=== PATIENT | female | born 1980 | race Caucasian/White ===

== ENCOUNTER → 2019-11-12 07:01 | Outpatient (CLI) | payer BC, SELFPAY ==
[2019-10-27 09:13] VITALS: BMI 33.8
--- NOTE | 2019-11-12 07:02 | BI_ITS ---
MAMMOGRAPHY - BILATERAL SCREENING REASON FOR EXAM: Female, 39 years old. Routine annual screening examination. PERTINENT HISTORY: Non-contributory. TECHNIQUE: Digital bilateral breast janell (3D mammographic acquisition) in the CC and MLO projections. 2-D mediolateral oblique (MLO) and craniocaudad (CC) views of both breasts were obtained. CAD: Full Field Digital Mammography with Computer Added Detection was performed. COMPARISON: None. Baseline examination. FINDINGS: Breast Composition: The breasts are heterogeneously dense, which may obscure small masses. There are no dominant masses or suspicious calcifications. No other significant abnormalities are identified. There has been no significant change since the prior study. BI/SCREEN MAMM (CAD) W/JANELL BILAT IMPRESSION: Stable bilateral screening mammogram. Yearly follow-up mammogram recommended. (A) ASSESSMENT CATEGORY: BIRADS Category 1: Negative. A letter regarding these results will be sent to the patient by the facility within 30 days. Approximately 10% of breast cancers are not detected by mammography. A normal mammogram should not delay biopsy of a clinically suspicious abnormality. [id number] Electronically Signed: Elie Gordillo, at 9:36 EDT , Service support ,
== END ==
PROVIDERS: PCP Internal Medicine; Referring Provider Nurse Practitioner Women's Health; Visit Provider Nurse Practitioner Women's Health
DX: Z12.31 Encounter for screening mammogram for malignant neoplasm of breast (principal)
CPT/HCPCS: 77063; 77067

== ENCOUNTER → 2019-12-12 08:50 | Outpatient (CLI) | payer BC, SELFPAY ==
[2019-12-12 08:19] VITALS: BMI 33.8
[2019-12-12 12:18] LABS: Absolute Lymphocyte Count 2.14 X10^3/uL (0.83-4.51); Absolute Neutrophil Count 2.8 X10^3/uL (2.0-7.7); Basophil# 0.03 X10^3/uL; Basophil% 0.5 % (0-1); Eosinophil# 0.15 X10^3/uL; Eosinophils% 2.7 % (0-5); Hematocrit 41.9 % (37-47); Hemoglobin 13.7 g/dL (12.0-15.0); Lymphocyte # 2.14 X10^3/ul (4.0); Lymphocyte % 38.7 % (19-41); Mean Corp Hgb Conc 32.7 g/dL (32-36); Mean Corpuscular Hgb 29.1 pg (27.0-32.0); Mean Corpuscular Volume 89.1 fL (81-99); Mean Platelet Vol. 10.3 fl (6.2-12.0); Monocyte# 0.38 X10^3/uL; Monocyte% 6.9 % (0-10); NRBC Flagged by Analyzer 0 % (0-5); Neutrophil # 2.82 X10^3/uL (2.7-7.7); Platelet Count 217 K/mm3 (150-450); RBC Distribution Width CV 11.7 % (11.6-14.6); RBC Distribution Width SD 37.5 fl (35.1-43.9); White Blood Count 5.5 K/mm3 (4.4-11.0)
[2019-12-12 12:27] LABS: AST(SGOT) 17 U/L (15-37); Alanine Aminotransfer ALT/SGPT 29 U/L (13-56); Albumin, Serum 3.8 g/dL (3.2-5.0); Alkaline Phosphatase 55 U/L (45-117); Anion Gap 6 (5-15); BUN 12 mg/dL (7-18); BUN/Creat Ratio 13.3 RATIO (10-20); Calcium,Total 9.1 mg/dL (8.5-10.1); Chloride 107 mmol/L (98-107); Cholesterol 194 mg/dL (200); EST Glomerular Filtration Rate 73 mL/min (>60); Est Glom Filt Rate - Afr Amer 89 mL/min (>60); Glucose 96 mg/dL (74-106); High Density Lipoprotein 66 mg/dL; Potassium 4.5 mmol/L (3.5-5.1); Protein, Total 7.8 g/dL (6.4-8.2); Sodium Level 142 mmol/L (136-145); Triglycerides 142 mg/dL; Very Low Density Lipoprotein 28 mg/dL (5-40)
== END ==
PROVIDERS: PCP Internal Medicine; Referring Provider Internal Medicine; Visit Provider Internal Medicine
DX: J45.909 Unspecified asthma, uncomplicated (principal); R03.0 Elevated blood-pressure reading, without diagnosis of hypertension; E66.9 Obesity, unspecified
CPT/HCPCS: 36415; 80053; 80061; 85025

== ENCOUNTER 2025-06-23 05:22 | Emergency (ER) | payer BC, SELFPAY ==
[2025-06-23 05:22] VITALS: BP 198/115; PULSE 108; RESP 18; TEMP 36.4; O2SAT 99; BMI 34.8
--- NOTE | 2025-06-23 05:43 | CT_ITS ---
PROCEDURE: BRAIN/HEAD WITHOUT CONTRAST 06/23/2025 REASON FOR EXAM: HEADACHE TECHNIQUE: Procedure Code: CTBR Modality: CT Procedure: BRAIN/HEAD WITHOUT CONTRAST Coronal and Sagittal reconstruction series were provided. One or more dose reduction techniques were used (e.g., Automated exposure control, adjustment of the mA and/or kV according to patient size, use of iterative reconstruction technique. RADIATION DOSE SUMMARY: CTDI Vol 44.99 mGy DLP :846.73 mGycm COMPARISON: none FINDINGS: The visualized brain parenchyma shows normal appearance. No focal parenchymal abnormalities are demonstrated. Montano-white matter differentiation is maintained. Normal CT appearance of the posterior fossa structures. No intracerebral or extra-axial hemorrhage. No midline shifts or deformity. Normal size and configuration of the cerebral ventricles. No definite calvarial fractures. The osseous structures in the skull base are unremarkable. Scanned paranasal sinuses are unremarkable. CT/Brain/Head without Contrast IMPRESSION: No intracerebral or extra-axial hemorrhage. No acute territorial cerebrovascular abnormalities. If clinical symptoms persis t, further evaluation with MRI may be considered as clinically warranted. Reading [facility]
--- NOTE | 2025-06-23 05:43 | EKG12_ITS ---
Test Reason : HTN Blood Pressure : */* mmHG Vent. Rate : 95 BPM Atrial Rate : 95 BPM P-R Int : 166 ms QRS Dur : 74 ms QT Int : 358 ms P-R-T Axes : 39 17 28 degrees QTcB Int : 449 ms Normal sinus rhythm Normal ECG Confirmed by Akash Cisneros ([id number]), slot editor ORI PARADA ([id number]) on 06/29/2025 8:23:10 AM Referred By: MATY Confirmed By: Akash Cisneros
--- OUTSIDE RECORDS SUMMARY | 2025-06-23 05:48 | XMS RPT_ITS | CCD ---
Author Organization [facility] Inform ion Partnership [facility] Care Team Providers Care Cardiopulmonary Physical Therapist Name Role Phone Beanivisforeign Aixa Ryan Primary Care Provider Calvin Sneed Primary Care Provider RACHELLE Elizabeth Attending Unava ilable CHICORELLI, ALLISON RENEE Referring Unavailab le CHICORELLI, ALLISON RENEE Attending Unavailab le CHICORELLI, ALLISON RENEE Attending Unavailab le CHICORELLI, ALLISON RENEE Attending Unavailab le BEAL, SCOTT Attending Unavailable CHICORELLI, ALLISON RENEE Referring Unavailab KEO Irizarry Attending Unavailable CHICORELLI, ALLISON RENEE Referring Unavailab le CHICORELLI, ALLISON RENEE Referring Unavailab le Allergies Allergy Classification Reported Allergen(s) Allergy Type Date of Onset Reaction(s) Facility eggplant extract (1 source) eggplant extract Drug Allergy 08-07-2005 [facility] Pollen (1 source) Pollen Substance Allergy 08-07-2005 [facility] (8 sources) eggplant extract; Translations: [EGGPLANT] Drug Allergy 08-07-2005 [facility] (8 sources) Pollen; Translations: [POLLEN] Propensity to adverse reactions 08-07-2005 [facility] Medications Current Medications Medication Drug Class(es) Dates Sig (Normalized) Sig (Original) 200 actuat albuterol 0.09 mg/actuat metered dose inhaler (6 sources) beta2-Adrenergic Agonist Start: 05-25-2005 take 2 puff(s) by inhalation every four hours as needed ALBUTEROL 90 MCG/ACTUATION AEROSOL INHALER Indications: Unspecified asthma(493.90) 2 puffs every four (4) hours as needed 1 2 05/25/2005 Active Comment on above: 2 puffs every four ( 4) hours as needed diphenhydrAMINE (5 sources) Histamine-1 Receptor Antagonist diphenhydramine HCl (BENADRYL ALLERGY ORAL) Take by mouth. Active diphenhydramine HCl (BENADRYL ALLERGY ORAL) Take by mouth. 0 Active fexofenadine (5 sources) Histamine-1 Receptor Antagonist fexofenadine HCl (HONG ORAL) Take by mouth. Active fexofenadine HCl (HONG ORAL) Take by mouth. 0 Active ibuprofen 600 mg oral tablet (5 sources) Nonsteroidal Anti-inflammatory Drug Start: 03-17-2011 take 1 tablet by mouth every six hours as needed ibuprofen 600 mg ORAL tablet Take 1 tablet by mouth every 6 hours as needed for Pain. 20 tablet 0 03/17/2011 Active mv-mn/iron fum/FA/omega3,6, 9#3 (WOMEN'S MULTI ORAL) (5 sources) mv-mn/iron fum/FA/omega3,6, 9#3 (WOMEN'S MULTI ORAL) Take by mouth. Active mv-mn/iron fum/F A/omega3,6,9#3 (WOMEN'S MULTI ORAL) Take by mouth. 0 Active sertraline 25 mg oral tablet (5 sources) Serotonin Reuptake Inhibitor Start: 09-20-2011 take 1 tablet by mouth once daily sertraline (ZOLOFT) 25 mg ORAL tablet Indications: Depression Take 1 tablet by mouth once daily. 30 tablet 5 09/20/2011 Active Completed/Discontinued Medications Medication Drug Class(es) Dates Sig (Normalized) Sig (Original) metFORMIN hydrochloride 500 mg oral tablet (1 source) Biguanide Start: 09-08-2010 End: 02-02-2011 take 1 tablet by mouth three times daily metFORMIN (METFORMIN) 500 mg ORAL tablet Take 1 tablet by mouth three times daily. 90 tablet 3 09/08/2010 02/02/2011 Discontinued Comment on above: Take 1 tablet by constantin three times daily. Problems Active Problems Problem Classification Problem Date Documented Date Episodic/Chronic Esophageal disorders (6 sources) Gastroesophageal reflux disease; Translations: [Gastro-esophageal reflux disease without esophagitis] 05-24-2005 Chronic Mood disorders (6 sources) Depressive disorder; Translations: [Major depressive disorder, single episode, unspecified] Onset: 09-20-2011 09-20-2011 Chronic Osteoarthritis (2 sources) Primary osteoarthritis, left shoulder; Translations: [Arthrosis of left acromioclavicular joint] Onset: 03-30-2025 Chronic Other connective tissue disease (3 sources) Full thickness rotator cuff tear; Translations: [Complete rotator cuff tear or rupture of left shoulder, not specified as traumatic] 02-25-2025 Episodic Other connective tissue disease (3 sources) Bursitis of left shoulder; Translations: [Bursitis of left shoulder] 02-25-2025 Episodic Other connective tissue disease (3 sources) Tendonitis of left shoulder; Translations: [Other enthesopathies, not elsewhere classified] 02-25-2025 Episodic Other connective tissue disease (2 sources) Bursitis of left shoulder; Translations: [Bursitis of left shoulder] Onset: 03-20-2025 Episodic Other connective tissue disease (1 source) Other shoulder lesions, left shoulder; Translations: [Tendinitis of left shoulder] Onset: 04-17-2025 Episodic Other connective tissue disease (2 sources) Complete rotator cuff tear or rupture of left shoulder, not specified as traumatic; Translations: [Complete tear of left rotator cuff, unspecified whether traumatic] Onset: 02-25-2025 Episodic Other connective tissue disease (2 sources) Other enthesopathies, not elsewhere classified; Translations: [Tendinitis of left shoulder] Onset: 02-25-2025 Episodic Other nervous system disorders (3 sources) Other chronic pain; Translations: [Chronic left shoulder pain] Onset: 03-20-2025 Chronic Other non-traumatic joint disorders (6 sources) Pain in left shoulder; Translations: [Pain in joint, shoulder region] Onset: 02-25-2025 02-17-2025 Episodic Other non-traumatic joint disorders (3 sources) Disorder of shoulder; Translations: [Other specified joint disorders, unspecified shoulder] 02-25-2025 Episodic Other non-traumatic joint disorders (1 source) Chronic pain of left upper limb; Translations: [Pain in left shoulder] 02-25-2025 Episodic Other non-traumatic joint disorders (2 sources) Other specified joint disorders, unspecified shoulder; Translations: [Shoulder impingement] Onset: 02-25-2025 Episodic Other upper respiratory disease (6 sources) Allergic rhinitis; Translations: [Allergic rhinitis, unspecified] Onset: 05-25-2005 05-25-2005 Chronic Residual codes; unclassified (2 sources) Pain; Translations: [Pain, unspecified] 10-26-2023 Episodic Unclassified (1 source) Left shoulder pain, unspecified chronicity 02-17-2025 Unclassified (2 sources) Chronic pain of left upper limb 02-25-2025 Past or Other Problems Problem Classification Problem Date Documented Da te Episodic/Chronic Diabetes or abnormal glucose tolerance complicating ; childbirth; or the puerperium (6 sources) Gestational diabetes mellitus; Translations: [Gestational diabetes mellitus in , unspecified control] Onset: 02-28-2011 02-28-2011 Episodic Other non-traumatic joint disorders (6 sources) Arthralgia of the pelvic region and thigh; Translations: [Pain in unspecified hip] Onset: 08-16-2006 08-16-2006 Episodic Other and delivery including normal (6 sources) ; Translations: [Encounter for supervision of normal , unspecified, unspecified trimester] Onset: 09-08-2010 09-08-2010 Episodic Spondylosis; intervertebral disc disorders; other back problems (6 sources) Low back pain; Translations: [Low back pain] Onset: 11-13-2006 11-13-2006 Episodic Results Test Name Value Interpretation Reference Range Facility [facility] 04-17-2025 CNOV Office Visit (ORMDNA ) ANTIONE DELUCA ([id number]) 1980 F [facility] Date Time Provider Department 04/17/25 12:30 PM ALLISON GARCIA During your visit today, we recorded the following information about you: Allison Garcia DO 04/23/2025 10:18 AM Signed Follow Up Visit Chief Complaint The patient is a 44-year-old female presenting for evaluation of persistent right shoulder pain following an AC joint corticosteroid injection. Patient presents with: Left Shoulder - Established Patient, Follow Up, Pain History of Present Illness PAIN EVALUATION 04/17/2025 0625 04/17/2025 1233 Pain Level: 3 4 Pain Location: Shoulder-Left Shoulder-Left Description: Aching;Sharp;Sore Sharp Duration Amount of Time: 2 -- ongoing Duration Units: Minutes -- Frequency: Intermittent Intermittent Intervention/Comfort measure: Relaxation;Cold Medication;Reposition;R elaxation HPI: Antione Deluca is a 44 year old female for a follow up visit left shoulder pain. Pain history is noted as above. She was seen by where she received a left AC joint CSI. She did have 75% pain relief but continues to have intermittent pain. Currently she is taking Tylenol for pain control. Is there any overall improvement in your condition? Yes Any new injury, since being seen last: No Екатерина Deluca is a 44-year-old female presenting for follow-up of shoulder pain. Shoulder Pain: - Received an AC joint injection on 03/30, with improvement noted after one week. - Pain localized to the clavicle and AC joint area. - Able to perform daily activities such as putting on a bra and placing dishes on the top shelf. - Pain is intermittent and not consistently triggered by specific activities. - Reports fewer headaches and increased relaxation in the trapezius muscle. - Engaging in physical therapy exercises to maintain muscle looseness. REVIEW OF SYMPTOMS: Patient did not have, and does not currently have, any weight loss, malaise, fever, chills, headache, chest pain, chest pressure, palpitations, cough, shortness of breath, orthopnea, paroxsymal nocturnal dyspnea, nausea, vomiting, diarrhea, constipation, melena, hematochezia, urinary difficulties, prolonged bleeding, easily bruising, heat or cold intolerance, new onset joint pain or swelling, new onset extremity weakness or numbness, new onset auditory or visual disturbances, lightheadedness, dizziness, partial loss of consciousness or full loss of consciousness. Musculoskeletal: (+) shoulder pain Neurological: (+) headaches Current Outpatient Medications Medication Sig diphenhydramine HCl (BENADRYL ALLERGY ORAL) Take by mouth. fexofenadine HCl (HONG ORAL) Take by mouth. mv-mn/iron fum/FA/omega3,6,9#3 (WOMEN'S MULTI ORAL) Take by mouth. No current facility-administered medications for this visit. Physical Exam Vitals: LMP 06/11/2010 Psych: Pleasant, good affect and mood General Appearance: Well appearing, alert, in no acute distress, well-hydrated, well nourished.. Skin: Skin color, texture, turgor normal, no suspicious rashes or lesions. Peripheral Pulses: Normal. Neurologic: Gait normal. Reflexes normal and symmetric. Sensation grossly intact.. Lymph Nodes: No cervical lymphadenopathy, No supraclavicular lymphadenopathy, No axillary lymphadenopathy., and No inguinal lymphadenopathy.. Respiratory: No recent pulmonary infection, hemoptysis, chronic cough, or shortness of breath at rest Rheumatologic: Joint deformities: left shoulder pain Right Shoulder Exam Right shoulder exam is normal. Tenderness The patient is experiencing no tenderness. Range of Motion Active abduction: normal Passive abduction: normal Extension: normal External rotation: normal Forward flexion: normal Internal rotation 0 degrees: normal Internal rotation 90 degrees: normal Muscle Strength Abduction: 5/5 Internal rotation: 5/5 External rotation: 5/5 Supraspinatus: 5/5 Subscapularis: 5/5 Biceps: 5/5 Tests Apprehension: negative Ashby test: negative Cross arm: negative Impingement: negative Other Erythema: absent Sensation: normal Pulse: present Comments: B/l med, uln, rad, ax nerves intact Left Shoulder Exam Tenderness The patient is experiencing tenderness in the clavicle. Range of Motion Active abduction: abnormal Passive abduction: normal Extension: normal External rotation: abnormal Forward flexion: normal Internal rotation 0 degrees: normal Internal rotation 90 degrees: normal Muscle Strength Abduction: 5/5 Internal rotation: 5/5 External rotation: 5/5 Supraspinatus: 5/5 Subscapularis: 5/5 Biceps: 5/5 Tests Apprehension: negative Ashby test: negative Cross arm: negative Impingement: negative Other Erythema: absent Sensation: normal Pulse: present Assessment and Plan Ra (more content not included)... Normal [facility] CNOVon 03-30-2025 CNOV Office Visit (ORFWHP ) ANTIONE DELUCA ([id number]) 1980 F T Date Time Provider Department 03/30/25 10:30 AM RACHELLE ALVAREZ ORFWHP During your visit today, we recorded the following information about you: Rachelle Alvarez DO 03/30/2025 11:12 AM Signed CHIEF COMPLAINT: Patient presents with: Left Shoulder - New, Pain: Injection possibly PAIN EVALUATION 03/29/2025 0915 Pain Level: 6 Pain Location: Shoulder-Left Description: Aching;Sharp;Shooting;S tabbing;Tenderness;Thro bbing Duration Amount of Time: 6 Duration Units: Months Frequency: Continuous Intervention/Comfort measure: Medication;Relaxation;C old SUBJECTIVE: Antione Deluca is a 44 year old female here for consideration of USG L AC joint CSI, referral from Dr. Allison Garcia. Last Hgba1c: Hemoglobin A1C (%) Date Value 03/31/2010 5.6 Notes reviewed: Orthopedic surgery note(s) reviewed - dated 03/25/2025 Past medical, surgical, social and family history were reviewed. Allergies and current medications reviewed. REVIEW OF SYSTEMS: GENERAL: no recent illness, unexplained weight loss or weight gain NEUROLOGIC: no numbness, tingling, or weakness except as mentioned in HPI, no known neuro problems or deficits SKIN: No rash or new skin changes and no chronic skin problems MSK: as mentioned in HPI PHYSICAL EXAMINATION: GENERAL APPEARANCE: Well appearing, in no acute distress, alert and oriented x3. L shoulder - cool to the touch without significant effusion. Skin is intact. Patient remains distally neurovascularly intact at baseline. IMAGING: No imaging was performed today. Last MRI Shoulder - Impression Only MRI SHOULDER WO IVCON LEFT Exam End: 03/21/2025 11:34 AM (Final result) Impression: IMPRESSION: NONDISPLACED STRESS FRACTURE OF DISTAL CLAVICLE. 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 TENDINOSIS OF SUPRASPINATUS TENDON. NO ROTATOR CUFF TEAR. ... 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 Injection performed as detailed in the procedure note below. Medium Joint Arthro/Inj: L AC 03/30/2025 11:11 AM The procedure site was prepped in the usual sterile fashion. Details:Musculoskeletal ultrasound was utilized to successfully localize placement of the injection needle at the appropriate site. Ultrasound images demonstrating local vasculature and demonstrating injection of solution were saved. Medications: 6 mg betamethasone acetate-betamethasone sodium phosphate 6 mg/mL Anesthetics: 1 mL lidocaine (PF) 10 mg/mL (1 %) Outcome: tolerated well, no immediate complications Post-injection instructions were reviewed with the patient and the patient voiced understanding of these instructions. Informed Consent Consent Obtained: Verbal [place] Protocol A moment to CARE was completed. SIGN IN Personnel directly involved with the procedure wore the appropriate PPE. Patient/Surrogate Stated/Verified: Patient name, Date of , Relevant allergies and Intended procedure TIME OUT Relevant labs, photos, and/or imaging studies have been reviewed. Intended patient and procedure match source documents. Correct side/site marked and visible. Medications required for procedure verified. SIGN OUT All instruments, equipment, possible retained foreign bodies accounted for. The post-procedure POC has been communicated to the patient or surrogate. Follow-up: as per consulting physician Written instructions (see patient instructions) and verbal health teaching given to patient, patient verbalizes understanding and agrees with treatment plan. Electronically Signed: Rachelle Alvarez DO Sports Medicine Physician Medical Decision Making Rachelle Alvarez DO 03/30/2025 10:42 AM Signed Post injection Instructions: You received a steroid injection today. Please keep any physical therapy appointments and schedule a follow-up appointment as recommended. Benefits: Injections help with PAIN and allow you to better participate in daily activities and exercise/therapy. Injections do NOT cause healing of arthritis or injuries. As pain is better controlled, this will reduce the need to use anti-inflammatories by mouth and/or if you are not able to take an anti-inflammatory due to other reasons (you have been advised to avoid or they are contra-indicated). Activity recommendations: For the first 24 hours after the injection, keep the area clean and dry. It is okay to shower but no soaking in a tub or swimming. Schedule the injection when you have 1-2 days to rest afterwards. Ideally, no strenuous or vigorous activi (more content not included)... [facility] ANTIONE DELUCA ([id number]) 1980 F [facility] Date Time Provider Department 03/25/25 9:15 AM ALLISON GARCIA During your visit today, we recorded the following information about you: Allison Garcia DO 04/01/2025 5:56 PM Signed Follow Up Visit Chief Complaint The patient is a 44-year-old female presenting for evaluation of persistent right shoulder pain and review of MRI findings. Patient presents with: Left Shoulder - Established Patient, Follow Up, Results - Mri, Pain History of Present Illness PAIN EVALUATION 03/24/2025 1443 Pain Level: 8 Pain Location: Shoulder-Left Description: Aching;Sharp;Shooting;S ore;Tenderness;Tightnes s Duration Amount of Time: 6 Duration Units: Months Frequency: Continuous Intervention/Comfort measure: Medication;Cold Comments: Constant HPI: Antione Deluca is a 44 year old female for a follow up visit for left shoulder pain. She is here today to discuss MRI results. She is currently in PT and reports increased pain since starting PT. Pain history is noted as above. Is there any overall improvement in your condition? No Any new injury, since being seen last: No Right Shoulder Pain: - Pain localized to the anterior shoulder and trapezius area. - Aggravated by physical therapy (PT); Екатерина reports breaking down in tears during a session. - Recent MRI reviewed by the clinician. - Undergoing PT with Keo; first session was last Sunday, followed by dry needling on Sunday. - Reports no improvement with dry needling. - Has been limiting overhead activities since October without significant relief. Last MRI Shoulder - Impression Only MRI SHOULDER WO IVCON LEFT Exam End: 03/21/2025 11:34 AM (Final result) Impression: IMPRESSION: NONDISPLACED STRESS FRACTURE OF DISTAL CLAVICLE. 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 TENDINOSIS OF SUPRASPINATUS TENDON. NO ROTATOR CUFF TEAR. ... Impression IMPRESSION: NONDISPLACED STRESS FRACTURE OF DISTAL CLAVICLE. 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 TENDINOSIS OF SUPRASPINATUS TENDON. NO ROTATOR CUFF TEAR. 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 BICEPS TENDINOSIS. REVIEW OF SYMPTOMS: Patient did not have, and does not currently have, any weight loss, malaise, fever, chills, headache, chest pain, chest pressure, palpitations, cough, shortness of breath, orthopnea, paroxsymal nocturnal dyspnea, nausea, vomiting, diarrhea, constipation, melena, hematochezia, urinary difficulties, prolonged bleeding, easily bruising, heat or cold intolerance, new onset joint pain or swelling, new onset extremity weakness or numbness, new onset auditory or visual disturbances, lightheadedness, dizziness, partial loss of consciousness or full loss of consciousness. Musculoskeletal: (+) shoulder pain, (+) neck pain Current Outpatient Medications Medication Sig diphenhydramine HCl (BENADRYL ALLERGY ORAL) Take by mouth. fexofenadine HCl (HONG ORAL) Take by mouth. mv-mn/iron fum/FA/omega3,6,9#3 (WOMEN'S MULTI ORAL) Take by mouth. No current facility-administered medications for this visit. Physical Exam Vitals: [facility] 06/11/2010 Psych: Pleasant, good affect and mood General Appearance: Well appearing, alert, in no acute distress, well-hydrated, well nourished.. Skin: Skin color, texture, turgor normal, no suspicious rashes or lesions. Peripheral Pulses: Normal. Neurologic: Gait normal. Reflexes normal and symmetric. Sensation grossly intact.. Lymph Nodes: No cervical lymphadenopathy, No supraclavicular lymphadenopathy, No axillary lymphadenopathy., and No inguinal lymphadenopathy.. Respiratory: No recent pulmonary infection, hemoptysis, chronic cough, or shortness of breath at rest Rheumatologic: Joint deformities: left shoulder pain Right Shoulder Exam Right shoulder exam is normal. Tenderness The patient is experiencing no tenderness. Range of Motion Active abduction: normal Passive abduction: normal Extension: normal External rotation: normal Forward flexion: normal Internal rotation 0 degrees: normal Internal rotation 90 degrees: normal Muscle Strength Abduction: 5/5 Internal rotation: 5/5 External rotation: 5/5 Supraspinatus: 5/5 Subscapularis: 5/5 Biceps: 5/5 Tests Apprehension: negative Ashby test: negative Cross arm: negative Impingement: negative Other Erythema: absent Sensation: normal Pulse: present Comments: B/l med, uln, rad, ax nerves intact Left Shoulder Exam Tenderness The patient is experiencing tenderness in the clavicle. Range of Motion Active abduction: abnormal Passive abduction: normal Extension: normal External rotation: abnormal Forward flex (more content not included)... Normal [facility] CNTHERAPYon 03-23-2025 CNTHERAPY OT/PT/Speech Visit (PTMDRG) ANTIONE DELUCA ([id number]) 1980 F [facility] Date Time Provider Department 03/23/25 10:15 AM KEO BEAL PTMDRG Date Time Provider Department [place] 03/23/2025 10:15 AM [id number], SCOTT PTMDRG [facility] Reason for Visit: Physical Therapy [503] PT Discharge [752] Primary Visit Diagnosis:Chronic left shoulder pain [M25.512, G89.29] Allergies As of Date: 03/23/2025 Noted Allergy Reaction EGGPLANT 08/07/2005 POLLEN 08/07/2005 Comments: plus Hay Date Reviewed: 02/25/2025 Reviewed by: Jaz Vincent MA - Fully Assessed Prescriptions as of 04/23/2025 - diphenhydramine HCl (BENADRYL ALLERGY ORAL) Take by mouth. - fexofenadine HCl (HONG ORAL) Take by mouth. - mv-mn/iron fum/FA/omega3,6,9#3 (WOMEN'S MULTI ORAL) Take by mouth. Sound Designer: Therapy (PT/OT/Speech/Resp) ID: [id number] 03/23/2025 11:28 AM Author: KEO BEAL Signed by EKO BEAL PT, DPT on 03/23/2025 at 11:28 AM Document text: Program_ID:[id number] Access Code: [email or web address] URL: [email or web address] Date: 03-23-2025 Prepared By: Keo Beal Program Notes Exercises - Standing Upper Trapezius Mobilization with Small Ball - 2 x daily - x weekly - sets - reps - Thoracic Extension Mobilization on Foam Roll - 2 x daily - x weekly - 2 sets - 10 reps - Seated Gentle Upper Trapezius Stretch - 2 x daily - x weekly - 3 sets - reps - Gentle Levator Scapulae Stretch - 2 x daily - x weekly - 3 sets - reps - Supine Shoulder Flexion Extension Full Range AROM - 2 x daily - x weekly - 2 sets - 15 reps - Sidelying Shoulder Abduction Palm Forward - 2 x daily - x weekly - 2 sets - [address] [facility] THERAPY NTon 03-23-2025 THERAPY NT HNO ID: [id number] Author: KEO BEAL, PT, DPT Service: ? Author Type: Physical Therapist Type: Therapy (PT/OT/Speech/Resp) Filed: 03/23/2025 11:28 Note Text: Program_ID:[id number] Access Code: [email or web address] URL: [email or web address] Date: 03-23-2025 Prepared By: Keo Beal Program Notes Exercises - Standing Upper Trapezius Mobilization with Small Ball - 2 x daily - x weekly - sets - reps - Thoracic Extension Mobilization on Foam Roll - 2 x daily - x weekly - 2 sets - 10 reps - Seated Gentle Upper Trapezius Stretch - 2 x daily - x weekly - 3 sets - reps - Gentle Levator Scapulae Stretch - 2 x daily - x weekly - 3 sets - reps - Supine Shoulder Flexion Extension Full Range AROM - 2 x daily - x weekly - 2 sets - 15 reps - Sidelying Shoulder Abduction Palm Forward - 2 x daily - x weekly - 2 sets - 15 reps [facility] MRI SHOULDER WO IVCON LTon 0 03-21-2025 MRI SHOULDER WO IVCON LT * * *Final Report* * * DATE OF EXAM: Mar 21 2025 11:34AM [facility] 0239 - MRI SHOULDER WO IVCON LT / PROCEDURE REASON: multiple diagnoses * * * * Physician Interpretation * * * * MRI SHOULDER WO IVCON LT HISTORY: Chronic left shoulder pain Chronic left shoulder pain Complete tear of left rotator cuff, unspecified whether traumatic Shoulder impingement COMPARISON: None. TECHNIQUE: Multiplanar PD, T1 and T2 weighted images. RESULT: Rotator cuff: Supraspinatus: Tendinosis without tear. Infraspinatus: Within normal limits. Teres minor: Within normal limits. Subscapularis: Within normal limits. Muscles: Rotator cuff muscle bulk and signal are within normal limits. Long Head Biceps Tendon: Tendinosis of intracapsular portion. Labrum: Tear of the superior labrum and biceps anchor. Glenohumeral joint: No chondral defects identified. AC joint: Degenerative hypertrophic AC joint arthrosis with effacement of the underlying supraspinatus myotendinous junction. Bones/marrow: There is transverse linear hypointensity in the distal clavicle 0.6 cm medial to the articular surface, with diffuse marrow edema. Findings suggesting nondisplaced stress fracture. Joint fluid: No joint effusion or synovitis. IMPRESSION: NONDISPLACED STRESS FRACTURE OF DISTAL CLAVICLE. 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 TENDINOSIS OF SUPRASPINATUS TENDON. NO ROTATOR CUFF TEAR. 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 BICEPS TENDINOSIS. Electric Stove Installer: PSCB Transcribe Date/Time: Mar 23 2025 8:46P Dictated by : RACHEL CABRAL MD This examination was interpreted and the report reviewed and electronically signed by: RACHEL CABRAL MD on Mar 23 2025 9:01PM EST [id number] [facility] CNTHERAPYon 03-20-2025 CNTHERAPY OT/PT/Speech Visit (PTMDRG) ANTIONE DELUCA ([id number]) 1980 F CHT Date Time Provider Department 03/20/25 12:15 PM KEO BEAL PTMDRG Date Time Provider Department [place] 03/20/2025 12:15 PM [id number], SCOTT PTMDRG [facility] Reason for Visit: PT Marek [[id number]] Visit Diagnoses:Chronic left shoulder pain [M25.512, G89.29] Complete tear of left rotator cuff, unspecified whether traumatic [M75.122] Shoulder impingement [M25.819] Bursitis of left shoulder [M75.52] Tendinitis of left shoulder [M77.8] Allergies As of Date: 03/20/2025 Noted Allergy Reaction EGGPLANT 08/07/2005 POLLEN 08/07/2005 Comments: plus Hay Date Reviewed: 02/25/2025 Reviewed by: Jaz Vincent MA - Fully Assessed Prescriptions as of 03/20/2025 - diphenhydramine HCl (BENADRYL ALLERGY ORAL) Take by mouth. - fexofenadine HCl (HONG ORAL) Take by mouth. - mv-mn/iron fum/FA/omega3,6,9#3 (WOMEN'S MULTI ORAL) Take by mouth. - sertraline (ZOLOFT) 25 mg ORAL tablet Take 1 tablet by mouth once daily. - ibuprofen 600 mg ORAL tablet Take 1 tablet by mouth every 6 hours as needed for Pain. - ALBUTEROL 90 MCG/ACTUATION AEROSOL INHALER 2 puffs every four (4) hours as needed Sound Designer: Therapy (PT/OT/Speech/Resp) ID: [id number] 03/20/2025 1:04 PM Author: KEO BEAL Signed by KEO BEAL PT, DPT on 03/20/2025 at 1:04 PM Document text: Program_ID:[id number] Access Code: [email or web address] URL: [email or web address]/ Date: 03-20-2025 Prepared By: Keo Beal Program Notes Exercises - Standing Upper Trapezius Mobilization with Small Ball - 2 x daily - x weekly - sets - reps - Theracane Over Shoulder - 2 x daily - x weekly - 3 sets - reps - Seated Thoracic Lumbar Extension - 2 x daily - x weekly - 2 sets - 10 reps [facility] THERAPY NTon 03-20-2025 THERAPY NT HNO ID: [id number] Author: KEO BEAL, PT, DPT Service: ? Author Type: Physical Therapist Type: Therapy (PT/OT/Speech/Resp) Filed: 03/20/2025 13:04 Note Text: Program_ID:[id number] Access Code: [email or web address] URL: [email or web address]/ Date: 03-20-2025 Prepared By: Keo Beal Program Notes Exercises - Standing Upper Trapezius Mobilization with Small Ball - 2 x daily - x weekly - sets - reps - Theracane Over Shoulder - 2 x daily - x weekly - 3 sets - reps - Seated Thoracic Lumbar Extension - 2 x daily - x weekly - 2 sets - 10 reps [facility] CNOVon 02-25-2025 CNOV Office Visit (ORMDNA ) ANTIONE DELUCA ([id number]) 1980 F CHT Date Time Provider Department 02/25/25 11:00 AM ALLISON GARCIA JL During your visit today, we recorded the following information about you: Allison Garcia 02/25/2025 12:46 PM Signed Reason for Visit/Chief Complaint The patient is a 44-year-old female presenting for a second-opinion evaluation of left shoulder pain with associated trapezius tightness. Accompanied by her mother. Patient presents with: Left Shoulder - New, Pain History of Present Illness: PAIN EVALUATION 02/25/2025 1112 Pain Level: 7 Pain Location: Shoulder-Left Description: Aching;Stabbing Duration Amount of Time: 6 Duration Units: Months Frequency: Continuous Intervention/Comfort measure: Exercise;Relaxation;Rep osition HPI: Patient presents with left shoulder pain. She denies any known injury states she has had pain about 6 months. She states that she has completed PT which helped with her numbness in her fingers but still having pain. She also tried meloxicam but had to stop due to side effects.Left Shoulder Pain: - Pain localized inside the shoulder, occasionally radiating into the neck and throat. - Екатерина is able to induce pain by applying pressure to the area. - Pain exacerbated by certain movements, particularly when pushing away with arms. - No specific inciting event or trauma recalled. - Previous physical therapy resolved initial numbness in Екатерина?s hands. - Cortisone injection provided minimal relief. 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 Review of Systems: Patient did not have, and does not currently have, any weight loss, malaise, fever, chills, headache, chest pain, chest pressure, palpitations, cough, shortness of breath, orthopnea, paroxsymal nocturnal dyspnea, nausea, vomiting, diarrhea, constipation, melena, hematochezia, urinary difficulties, prolonged bleeding, easily bruising, heat or cold intolerance, new onset joint pain or swelling, new onset extremity weakness or numbness, new onset auditory or visual disturbances, lightheadedness, dizziness, partial loss of consciousness or full loss of consciousness. Current Outpatient Medications on File Prior to Visit Medication Sig diphenhydramine HCl (BENADRYL ALLERGY ORAL) Take by mouth. fexofenadine HCl (HONG ORAL) Take by mouth. mv-mn/iron fum/FA/omega3,6,9#3 (WOMEN'S MULTI ORAL) Take by mouth. sertraline (ZOLOFT) 25 mg ORAL tablet Take 1 tablet by mouth once daily. (Patient not taking: Reported on 02/25/2025) ibuprofen 600 mg ORAL tablet Take 1 tablet by mouth every 6 hours as needed for Pain. (Patient not taking: Reported on 02/25/2025) ALBUTEROL 90 MCG/ACTUATION AEROSOL INHALER 2 puffs every four (4) hours as needed (Patient not taking: Reported on 02/25/2025) No current facility-administered medications on file prior to visit. ALLERGIES Allergen Reactions Eggplant Pollen plus Hay Physical Exam: Vitals: [facility] 06/11/2010 Psych: Pleasant, good affect and mood General Appearance: Well appearing, alert, in no acute distress, well-hydrated, well nourished.. Skin: Skin color, texture, turgor normal, no suspicious rashes or lesions. Peripheral Pulses: Normal. Neurologic: Gait normal. Reflexes normal and symmetric. Sensation grossly intact.. Lymph Nodes: No cervical lymphadenopathy, No supraclavicular lymphadenopathy, No axillary lymphadenopathy., and No inguinal lymphadenopathy.. Respiratory: No recent pulmonary infection, hemoptysis, chronic cough, or shortness of breath at rest Rheumatologic: Joint deformities: left shoulder pain Right Shoulder Exam Right shoulder exam is normal. Tenderness The patient is experiencing no tenderness. Range of Motion Active abduction: normal Passive abduction: normal Extension: normal External rotation: normal Forward flexion: normal Internal rotation 0 degrees: normal Internal rotation 90 degrees: normal Muscle Strength Abduction: 5/5 Internal rotation: 5/5 External rotation: 5/5 Supraspinatus: 5/5 Subscapularis: 5/5 Biceps: 5/5 Tests Apprehension: negative Ashby test: negative Cross arm: negative Impingement: negative Other Erythema: absent Sensation: normal Pulse: present Comments: B/l med, uln, rad, ax nerves intact Left Shoulder Exam Tenderness The patient is experiencing tenderness in the biceps tendon (trapezius). Range of Motion Active abduction: normal Passive abduction: normal Extension: normal External rotation: abnormal Forward flexion: normal Internal rotation 0 degrees: normal Internal rotation 90 degrees: normal Muscle Strength Abduction: 5/5 Internal rotation: 5/5 External rotation: 4/5 Supraspinatus: 4/5 Subscapularis: 5/5 B (more content not included)... Normal [facility] XR SHLDR >/=3V AP/BOAZ AP/OTH R LTon 02-25-2025 XR SHLDR >/=3V AP/BOAZ AP/OTHR LT * * *Final Report* * * DATE OF EXAM: Feb 25 2025 11:11AM ZEKE [id number] - XR SHLDR >/=3V AP/BOAZ AP/OTHR LT / PROCEDURE REASON: M25.512-Left shoulder pain, unspecified chronicity * * * * Physician Interpretation * * * * EXAMINATION / TECHNIQUE: XR SHLDR >/=3V AP/BOAZ AP/OTHR LT HISTORY: Left shoulder pain Left shoulder pain, unspecified chronicity COMPARISON: Left shoulder MRI dated 12/11/2024. RESULT: No acute fracture or osseous malalignment is identified. The joint spaces are preserved. IMPRESSION: No acute bony abnormality. Electric Stove Installer: AMAURY Transcribe Date/Time: Mar 02 2025 7:20P Dictated by : BARTOLOME MATHEWS MD This examination was interpreted and the report reviewed and electronically signed by: BARTOLOME MATHEWS MD on Mar 02 2025 7:20PM EST [id number] [facility] No Panel Informationon 10-25 Radiology Study observation (narrative) [facility] XR Hand - right PA and Later al and Obliqueon 10-26-2023 IMPRESSION: No acute osseous abnormality Electric Stove Installer: [facility] Transcribe Date/Time: Oct 26 2023 9:20A Dictated by : VIRGIL ALLISON MD This examination was interpreted and the report reviewed and electronically signed by: VIRGIL ALLISON MD on Oct 26 2023 9:22AM EST DIVISION OF RADIOLOGY * * *Final Report* * * DATE OF EXAM: Oct 26 2023 8:53AM WOX [id number] - XR HAND 3V PA/LAT/OBL RT / PROCEDURE REASON: Pain * * * * Physician Interpretation * * * * EXAMINATION: XR HAND 3V PA/LAT/OBL RT CLINICAL HISTORY: Right hand pain Technique: XR HAND 3V PA/LAT/OBL RT -- RIGHT with 3 views on 3 images Comparison: None RESULT: No acute fracture or dislocation. Joint spaces are maintained. No periarticular erosions. DIVISION OF RADIOLOGY Provider, [facility] - 10/26/2023 * * *Final Report* * * DATE OF EXAM: Oct 26 2023 8:53AM WOX 5346 - XR HAND 3V PA/LAT/OBL RT / PROCEDURE REASON: Pain * * * * Physician Interpretation * * * * EXAMINATION: XR HAND 3V PA/LAT/OBL RT CLINICAL HISTORY: Right hand pain Technique: XR HAND 3V PA/LAT/OBL RT -- RIGHT with 3 views on 3 images Comparison: None RESULT: No acute fracture or dislocation. Joint spaces are maintained. No periarticular erosions. IMPRESSION IMPRESSION: No acute osseous abnormality Electric Stove Installer: [facility] Transcribe Date/Time: Oct 26 2023 9:20A Dictated by : VIRGIL ALLISON MD This examination was interpreted and the report reviewed and electronically signed by: VIRGIL ALLISON MD on Oct 26 2023 9:22AM [facility] XR Wrist - right 4 Viewson 0 10-26-2023 IMPRESSION: No acute radiographic abnormalities seen in the right wrist. Electric Stove Installer: [facility] Transcribe Date/Time: Oct 26 2023 8:55A Dictated by : SHERRY ROMERO MD This examination was interpreted and the report reviewed and electronically signed by: SHERRY ROMERO MD on Oct 26 2023 8:59AM [facility] DIVISION OF RADIOLOGY * * *Final Report* * * DATE OF EXAM: Oct 26 2023 8:53AM WOX 5273 - XR WRIST 4V PA/LAT/OBL/SCAPH RT / PROCEDURE REASON: Pain * * * * Physician Interpretation * * * * EXAM TITLE: XR WRIST 4V PA/LAT/OBL/SCAPH RT EXAM DATE/TIME: 10/26/2023 8:53 AM COMPARISON: None. CLINICAL INDICATION/HISTORY: Injury TECHNIQUE: PA, lateral, oblique and scaphoid views of right wrist are presented. FINDINGS: No acute fractures or subluxations are noted. The joint spaces are well preserved. The mineralization of the bones is normal. There is no significant soft tissue swelling. DIVISION OF RADIOLOGY Provider, [facility] - 10/26/2023 * * *Final Report* * * DATE OF EXAM: Oct 26 2023 8:53AM WOX 5273 - XR WRIST 4V PA/LAT/OBL/SCAPH RT / PROCEDURE REASON: Pain * * * * Physician Interpretation * * * * EXAM TITLE: XR WRIST 4V PA/LAT/OBL/SCAPH RT EXAM DATE/TIME: 10/26/2023 8:53 AM COMPARISON: None. CLINICAL INDICATION/HISTORY: Injury TECHNIQUE: PA, lateral, oblique and scaphoid views of right wrist are presented. FINDINGS: No acute fractures or subluxations are noted. The joint spaces are well preserved. The mineralization of the bones is normal. There is no significant soft tissue swelling. IMPRESSION IMPRESSION: No acute radiographic abnormalities seen in the right wrist. Electric Stove Installer: AMAURY Transcribe Date/Time: Oct 26 2023 8:55A Dictated by : SHERRY ROMERO MD This examination was interpreted and the report reviewed and electronically signed by: SHERRY ROMERO MD on Oct 26 2023 8:59AM EST [facility] XR Wrist - right 4 ViewsOrde red By: [facility] Provider on 10-26-2023 [facility] CBC W/Diff, Automatedon 06- Absolute Lymph 2.14 X10 3/uL Normal 0.83-4.51 [facility] Comment on above: Performed By: #### L 500.4100, L500.4050, L100.0100 #### [facility] [address] [place], [address] Absolute Neut 2.8 X10 3/uL Normal 2.0-7.7 [facility] Comment on above: Performed By: #### L 500.4100, L500.4050, L100.0100 #### [facility] [address] [place], [address] Basophils/100 WBC (Bld) 0.5 % Normal 0-1 [facility] Comment on above: Performed By: #### L 500.4100, L500.4050, L100.0100 #### [facility] [address] [place], [address] Eosinophils/100 WBC (Bld) 2.7 % Normal 0-5 [facility] Comment on above: Performed By: #### L 500.4100, L500.4050, L100.0100 #### [facility] [address] [place], [address] Erythrocyte distribution width (RBC) [Ratio] 11.7 % Normal 11.6-14.6 [facility] Comment on above: Performed By: #### L 500.4100, L500.4050, L100.0100 #### [facility] [address] [place], [address] Hematocrit (Bld) [Volume fraction] 41.9 % Normal 37-47 [facility] Comment on above: Performed By: #### L 500.4100, L500.4050, L100.0100 #### [facility] [address] [place], [address] Hemoglobin (Bld) [Mass/Vol] 13.7 g/dL Normal 12.0-15.0 [facility] Comment on above: Performed By: #### L 500.4100, L500.4050, L100.0100 #### [facility] [address] [place], [address] IM GRAN % 0.200 % Normal 0.0-0.9 [facility] Comment on above: Result Comment: IG% - Immature Granulocytes (promyelocytes, myelocytes and metamyelocytes) > 1% indicates that a LEFT SHIFT is Present. Performed By: #### L 500.4100, L500.4050, L100.0100 #### [facility] [address] [place], [address] Lymphocytes/100 WBC (Bld) 38.7 % Normal 19-41 [facility] Comment on above: Performed By: #### L 500.4100, L500.4050, L100.0100 #### [facility] [address] [place], [address] MCH (RBC) [Entitic mass] 29.1 pg Normal 27.0-32.0 [facility] Comment on above: Performed By: #### L 500.4100, L500.4050, L100.0100 #### [facility] [address] [place], [address] MCHC (RBC) [Mass/Vol] 32.7 g/dL Normal 32-36 [facility] Comment on above: Performed By: #### L 500.4100, L500.4050, L100.0100 #### [facility] [address] [place], [address] MCV (RBC) [Entitic vol] 89.1 fL Normal 81-99 [facility] Comment on above: Performed By: #### L 500.4100, L500.4050, L100.0100 #### [facility] [address] [place], [address] Monocytes/100 WBC (Bld) 6.9 % Normal 0-10 [facility] Comment on above: Performed By: #### L 500.4100, L500.4050, L100.0100 #### [facility] [address] [place], [address] Neutrophils/100 WBC (Bld) 51.0 % Normal 47-70 [facility] Comment on above: Performed By: #### L 500.4100, L500.4050, L100.0100 #### [facility] [address] [place], [address] NRBC, FLAGGED 0 % Normal 0-5 [facility] Comment on above: Performed By: #### L 500.4100, L500.4050, L100.0100 #### [facility] [address] [place], [address] Platelet mean volume (Bld) [Entitic vol] 10.3 fL Normal 6.2-12.0 [facility] Comment on above: Performed By: #### L 500.4100, L500.4050, L100.0100 #### [facility] [address] [place], [address] Platelets (Bld) [#/Vol] 217 10*3/uL Normal 150-450 [facility] Comment on above: Performed By: #### L 500.4100, L500.4050, L100.0100 #### [facility] [address] [place], [address] RBC (Bld) [#/Vol] 4.70 10*6/uL Normal 4.2-5.4 [facility] Comment on above: Performed By: #### L 500.4100, L500.4050, L100.0100 #### [facility] [address] [place], [address] RDW SD 37.5 fl Normal 35.1-43.9 [facility] Comment on above: Performed By: #### L 500.4100, L500.4050, L100.0100 #### [facility] [address] [place], [address] WBC (Bld) [#/Vol] 5.5 10*3/uL Normal 4.4-11.0 [facility] Comment on above: Performed By: #### L 500.4100, L500.4050, L100.0100 #### [facility] [address] [place], [address] Comprehensive Metabolic Prof ilon 12-12-2019 Albumin [Mass/Vol] 3.8 g/dL Normal 3.2-5.0 [facility] Comment on above: Performed By: #### L 500.4100, L500.4050, L100.0100 #### [facility] [address] [place], [address] Albumin/Globulin [Mass ratio] 1.0 {ratio} Normal 0.9-2.4 [facility] Comment on above: Performed By: #### L 500.4100, L500.4050, L100.0100 #### [facility] [address] [place], [address] ALK P 55 U/L Normal 45-117 [facility] Comment on above: Performed By: #### L 500.4100, L500.4050, L100.0100 #### [facility] [address] [place], [address] ALT [Catalytic activity/Vol] 29 U/L Normal 13-56 [facility] Comment on above: Performed By: #### L 500.4100, L500.4050, L100.0100 #### [facility] [address] [place], [address] AST [Catalytic activity/Vol] 17 U/L Normal 15-37 [facility] Comment on above: Performed By: #### L 500.4100, L500.4050, L100.0100 #### [facility] [address] [place], [address] Bilirubin [Mass/Vol] 0.50 mg/dL Normal 0.20-1.00 [facility] Comment on above: Result Comment: For patients on eltrombopag therapy, use of Dimension [place] TBIL is not recommended. Performed By: #### L 500.4100, L500.4050, L100.0100 #### [facility] [address] [place], [address] BUN/CRE 13.3 RATIO Normal 10-20 [facility] Comment on above: Performed By: #### L 500.4100, L500.4050, L100.0100 #### [facility] [address] [place], [address] Calcium [Mass/Vol] 9.1 mg/dL Normal 8.5-10.1 [facility] Comment on above: Performed By: #### L 500.4100, L500.4050, L100.0100 #### [facility] [address] [place], [address] Chloride [Moles/Vol] 107 mmol/L Normal 98-107 [facility] Comment on above: Performed By: #### L 500.4100, L500.4050, L100.0100 #### [facility] [address] [place], [address] CO2 [Moles/Vol] 29.0 mmol/L Normal 21.0-32.0 [facility] Comment on above: Performed By: #### L 500.4100, L500.4050, L100.0100 #### [facility] [address] [place], [address] Creatinine [Mass/Vol] 0.90 mg/dL Normal 0.55-1.02 [facility] Comment on above: Result Comment: The validity of the calculated GFR AND GFRAA in patients over 70 years has not been determined. Clinical correlation is essential. Performed By: #### L 500.4100, L500.4050, L100.0100 #### [facility] [address] [place], [address] EST GFR - AA 89 mL/min Normal >60 [facility] Comment on above: Result Comment: Afri can Cambodian GFR Calc Performed By: #### L 500.4100, L500.4050, L100.0100 #### [facility] [address] [place], [address] GAP 6 Normal 5-15 [facility] Comment on above: Performed By: #### L 500.4100, L500.4050, L100.0100 #### [facility] [address] [place], [address] GFR/1.73 sq M.predicted among non-blacks MDRD (S/P/Bld) [Vol rate/Area] 73 mL/min/{1.73_m2} Normal >60 [facility] Comment on above: Result Comment: Non- GFR Calc Performed By: #### L 500.4100, L500.4050, L100.0100 #### [facility] [address] [place], [address] Globulin (S) [Mass/Vol] 4.0 g/dL Normal 2.2-4.2 [facility] Comment on above: Performed By: #### L 500.4100, L500.4050, L100.0100 #### [facility] [address] [place], [address] Glucose [Mass/Vol] 96 mg/dL Normal 74-106 [facility] Comment on above: Result Comment: Carmen harrington note revised GLUCOSE reference range effective 2017. Performed By: #### L 500.4100, L500.4050, L100.0100 #### [facility] [address] [place], [address] Potassium [Moles/Vol] 4.5 mmol/L Normal 3.5-5.1 [facility] Comment on above: Performed By: #### L 500.4100, L500.4050, L100.0100 #### [facility] [address] [place], [address] Sodium [Moles/Vol] 142 mmol/L Normal 136-145 [facility] Comment on above: Performed By: #### L 500.4100, L500.4050, L100.0100 #### [facility] [address] [place], [address] T PROT 7.8 g/dL Normal 6.4-8.2 [facility] Comment on above: Performed By: #### L 500.4100, L500.4050, L100.0100 #### [facility] [address] [place], [address] Urea nitrogen [Mass/Vol] 12 mg/dL Normal 7-18 [facility] Comment on above: Performed By: #### L 500.4100, L500.4050, L100.0100 #### [facility] [address] [place], [address] Internal Medicine Office Vis iton 12-12-2019 Internal Medicine Office Visit [facility] [address] [place] [address] [place] [address] OFFICE VISIT Date of Service: 12/12/19 MR#: [id number] Acct: [id number] Name: ANTIONE DELUCA Adán Rep #: [id number] : 1980 Provider: Dr. Calvin breen MD Age/Sex: 39/F Location: [facility] Status: Signed Intake Vital Signs 12/12/19 Weight: 191 lb 12/12/19 BP 132/84 H 12/12/19 Blood Pressure Location Lt brachial 12/12/19 Position Sitting 12/12/19 Respiration 16 12/12/19 Pulse 85 12/12/19 Pulse Source Monitor 12/12/19 Temp 98.4 F 12/12/19 Temp Source Temporal 12/12/19 Pulse Oximetry (%) 98 12/12/19 Oxygen Delivery Method room air Intake Visit Reasons: 2 M FU Chief Complaint: Est. Care Allergies No Known Allergies Allergy (Verified 12/12/19 08:18) Medications multivitamin,tx-iron-mi nerals 1 tab PO QDAY 07/17/17 [History Confirmed 12/12/19] albuterol sulfate 90 mcg/actuation aerosol inhaler 2 puff INHALATION Q6H PRN #8 g 10/10/19 [Rx Confirmed 12/12/19] loratadine 10 mg capsule 10 mg PO DAILY 12/12/19 [History Confirmed 12/12/19] FOR[facility]LY [facility] Medical History Frequent headaches (Chronic) Gestational diabetes (Chronic) Back problem (Chronic) Asthma (Chronic) Allergies (Chronic) Endometriosis (Chronic) Surgical History H/O laparoscopy (Acute) Family History Mother Diabetes Myocardial infarction Father Myocardial infarction Grandfather Myocardial infarction Social History Smoking Status: Never smoker alcohol intake: current alcohol intake frequency: holidays/special occasions only details: social substance use type: does not use caffeine: Yes what type of physical activity do you participate in: bicycling, other details: Plays Softball frequency: 1-2 times per week seatbelt use: always do you feel safe at home: Yes 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 Care Details: ANTIONE DELUCA, is a 39 F who presents to the office today To establish care/follow-up of recent virtual visit for asthma exacerbation. Doing well. Completed steroids and antibiotics with subsequent symptom resolution. Only has to use her albuterol as needed. Has not had a PFT done. Blood pressure is elevated today. She states that she is aware that her blood pressure has been elevated in the past. Admits to some weight gain lately due to the ongoing pandemic. She was adopted and is unaware of her family history. ROS Const Constitutional: No body ache, chills, excessive sweating, fatigue, fever(s), frequent falls, headache(s), snoring, weakness, weight change, sleep problems, change in appetite or other Eyes Eyes: No blurry vision, change in vision, eye pain, light sensitivity or other ENT ENT: No abnormal hearing, ear pain, tinnitus, nasal congestion, headache(s), neck pain, sore throat or other Resp Respiratory: No cough, shortness of breath, snoring, wheezing or other Cardio Cardiology: No chest pain at rest, chest pain with exertion, excessive sweating, shortness of breath, dyspnea on exertion, lightheadedness, orthopnea, palpitations or other Gastro GI: No abdominal pain, change in bowel habits, constipation, cramping, diarrhea, blood in stool, nausea/dyspepsia, vomiting or other Genitourinary-Female: No burning urination, painful urination, urinary incontinence, urinary frequency, abnormal vaginal bleeding, pelvic pain or other Musc Musculoskeletal: No abnormal walking, joint pain, back pain, limited range of motion, neck pain, numbness, tingling or other Skin Skin: No dry skin, redness, itching, rash, wounds or other Breast Breast: No other Neuro Neurology: No abnormal walking, abnormal hearing, abnormal speech, dizziness, weakness, frequent falls, headache(s), memory loss, numbness, tingling or other Psych Psychiatric: No anxiety, No change in appetite, No depression, No memory loss, No Thoughts of harming yourself/Others, No other Endo Endocrine: No cold intolerance, excessive sweating, fatigue, flushing, heat intolerance, increased thirst/drinking, increased hunger or other Aller/Imm Allergy/Immunologic: No itchy eyes, seasonal allergy symptoms, hives, wheezing or other Oren/Lymp Hematologic/Lymphatic: No easy bleeding, easy bruising, enlarged lymph nodes or other Exam Const General: cooperative, no acute distress, well developed Orientation: alert, awake, oriented x3 [facility] Head: normal to inspection, normocephalic, atraumatic Ears: hearing grossly normal bilaterally Eyes General: appearance normal, both eyes and all related structures Neck Neck: normal visual inspection, full ROM, supple Neck mass: No (more content not included)... Normal [facility] Lipid Profileon 12-12-2019 Cholesterol [Mass/Vol] 194 mg/dL Normal 200 [facility] Comment on above: Result Comment: <200 mg/dL Desirable 200-240 mg/dL Borderline >240 mg/dL High Risk Performed By: #### L 500.9940, L500.4050, L100.0100 #### [facility] Laboratory [facility] [place] [address], [address] Cholesterol in HDL [Mass/Vol] 66 mg/dL Normal [facility] Comment on above: Result Comment: The drugs N-Acetylcysteine and Metamizole may falsely depress this assay. Reference Range HDL <40 mg/dL Low HDL Cholesterol HDL >or= 60 mg/dL High HDL Cholesterol Performed By: #### L 500.4100, L500.4050, L100.0100 #### [facility] [address] [place], [address] Cholesterol in LDL [Mass/Vol] 100 mg/dL Normal 0-130 [facility] Comment on above: Performed By: #### L 500.4100, L500.4050, L100.0100 #### [facility] [address] [place], [address] Cholesterol in VLDL [Mass/Vol] 28 mg/dL Normal 5-40 [facility] Comment on above: Performed By: #### L 500.4100, L500.4050, L100.0100 #### [facility] [address] [facility] [place], [address] Triglyceride [Mass/Vol] 142 mg/dL Normal [facility] Comment on above: Result Comment: The drugs N-Acetylcysteine and Metamizole may falsely depress this assay. Serum Triglycerides Reference Interval Normal <150 mg/dL Borderline high 150 - 199 mg/dL High 200 - 499 mg/dL Very High > or = 500 mg/dL Performed By: #### L 500.4100, L500.4050, L100.0100 #### [facility] [address] [facility] [place], [address] SCREEN MAMM (CAD) W/JANELL ARCHIE ATon 11-12-2019 SCREEN MAMM (CAD) W/JANELL BILAT [facility] Imaging Services [address] [place] [address] SCREEN MAMM (CAD) W/JANELL BILAT MR#: [id number] Acct: [id number] Name: ANTIONE DELUCA Rep #: [id number] : 1980 F 39 From: Elie katz MD PCP: Dr. Calvin Sneed MD Status: [facility] Study: SCREEN MAMM (CAD) W/JANELL BILAT Date of Exam: 0 11/12/19 Exam# [id number] Ordering Dr: Rachelle Meza NP-Sera MAMMOGRAPHY - BILATERAL SCREENING REASON FOR EXAM: Female, 39 years old. Routine annual screening examination. PERTINENT HISTORY: Non-contributory. TECHNIQUE: Digital bilateral breast janell (3D mammographic acquisition) in the CC and MLO projections. 2-D mediolateral oblique (MLO) and craniocaudad (CC) views of both breasts were obtained. CAD: Full Field Digital Mammography with Computer Added Detection was performed. COMPARISON: None. Baseline examination. FINDINGS: Breast Composition: The breasts are heterogeneously dense, which may obscure small masses. There are no dominant masses or suspicious calcifications. No other significant abnormalities are identified. There has been no significant change since the prior study. BI/SCREEN MAMM (CAD) W/JANELL BILAT IMPRESSION: Stable bilateral screening mammogram. Yearly follow-up mammogram recommended. (A) ASSESSMENT CATEGORY: BIRADS Category 1: Negative. A letter regarding these results will be sent to the patient by the facility within 30 days. Approximately 10% of breast cancers are not detected by mammography. A normal mammogram should not delay biopsy of a clinically suspicious abnormality. [id number] Electronically Signed: Elie Gordillo, at 9:36 EDT , Service support , CC: GETACHEW Meza; Dr. 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 [place] [address] OFFICE VISIT Date of Service: 10/27/19 MR#: [id number] Acct: [id number] Name: ANTIONE DELUCA Rep #: [id number] : 1980 Provider: GETACHEW Meza Age/Sex: 39/F Location: [facility] Status: Signed Intake Vital Signs10/27/19 Height 5 ft 7 in 10/27/19 Weight: 186 lb 6 oz 10/27/19 BMI 29.2 10/27/19 BP 128/80 H Intake Visit Reasons: Annual ([employer] [address]), Covid 19 r/s from 10/06 Nozzle Tender Required: No Is patient in pain?: No Allergies No Known Allergies Allergy (Verified 10/27/19 09:11) Medications multivitamin,tx-iron-mi nerals 1 tab PO QDAY 07/17/17 [History Confirmed 10/27/19] cetirizine 10 mg tablet 10 mg PO DAILY 10/09/19 [History Confirmed 10/27/19] albuterol sulfate 90 mcg/actuation aerosol inhaler 2 puff INHALATION Q6H PRN #8 g 10/10/19 [Rx Confirmed 10/27/19] azithromycin 250 mg tablet See Rx Instructions PO .COMPLEX #6 tab 10/10/19 [Rx Confirmed 10/27/19] prednisone 20 mg tablet 40 mg PO DAILY #10 tab 10/10/19 [Rx Confirmed 10/27/19] Is last menstrual period known: Yes Last Menstral Period: 09/15/19 Post menopausal: No Patient : No : No PFSH Medical History Frequent headaches (Chronic) Gestational diabetes (Chronic) Back problem (Chronic) Asthma (Chronic) Allergies (Chronic) Endometriosis (Chronic) Surgical History H/O laparoscopy (Acute) Family History Mother Diabetes Myocardial infarction Father Myocardial infarction Grandfather Myocardial infarction Social History (Updated 10/27/19 @ 09:48 by SUREKHA Altman) Smoking Status: Never smoker alcohol intake: current alcohol intake frequency: holidays/special occasions only details: social substance use type: does not use caffeine: Yes what type of physical activity do you participate in: bicycling, other details: Plays Softball frequency: 1-2 times per week seatbelt use: always do you feel safe at home: Yes 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 DatName [place]/We[facility]Outcome [facility] CyrilgInkaylin Goldman LgAnesthesDel LocaProviderFOB e ht en ia tn Unknown 2010 [facility] HPI Annual ([employer] [address]), Covid 19 r/s from 10/06: Details: ANTIONE DELUCA is a 39 year old who presents for annual exam. denies concerns Last PAP: 2018 History of abnormal PAP: no Last mammogram: baseline scheduled. Colon cancer screening: age 49 Other preventative health care screenings: Dr. Sneed Female Reproductive History Last Menstral Period: 09/15/19 Cycle Length: 21-35 Bleeding Duration: 3 Control Method: vasectomy spouse Questions: Metorrhagia: No, Sexually active: Yes, Dyspareunia: No, PCB: No ROS Const Constitutional: Denies fatigue, weight gain or weight loss Cardio Card: Denies chest pain Resp Resp: Denies cough or shortness of breath with activity GI GI: Denies abdominal pain, bloating, change in stools, constipation or vomiting : Reports as per HPI; denies difficulty urinating, pelvic pain, urinary frequency, urinary incontinence, urinary urgency, vaginal discharge or vaginal itching Exam Const General: cooperative, healthy appearing, no acute distress, well developed Orientation: alert, oriented to person, oriented to place [facility] Head: normal to inspection Neck Neck: normal visual inspection Thyroid: thyroid normal Lymphatic: no lymphadenopathy noted Chest Breast inspection: normal inspection of the breasts, normal inspection of the axillae Breast palpation: normal palpation of the breasts, normal palpation of the axillae, no axillary lymphadenopathy Resp Effort AND Inspection: normal respiratory effort GI Palpation: soft, no masses, nontender Rectal Exam: deferred External Female Exam: normal external appearance, normal appearance of the urethra Urethra: normal appearance of the urethra, normal palpation Speculum Exam - Vagina: normal appearance of the vagina, normal vaginal discharge Speculum Exam - Cervix: normal appearance of the cervix Bimanual Exam- Vagina AND Uterus: normal bimanual exam, uterine size normal, uterine shape normal, uterus non-tender Bimanual Exam- Adnexa, other: normal adnexae, no adnexal masses, pelvic support normal, adnexae non-tender Pelvic Support: normal Neuro General: alert, oriented x3 Psych Affect: normal affect Assessment AND Plan Problems 1. Encounter for gynecological examination without abnormal finding Z01.419 Plan Completed breast and pe (more content not included)... Normal [facility] Vital Signs Date Time Vital Sign Value Performing Clinician Mariano guillory 10-26-2023 08:27-0400 Body temperature 98.6 [degF] Zaira Mack APRN.[employer]ER [employer] Work Phone: [facility] 10-26-2023 08:27-0400 Body weight 94.9 kg Zaira Mack APRN.[employer]ER [employer] Work Phone: [facility] 10-26-2023 08:27-0400 Diastolic blood pressure 132 mm[Hg] Zaira Mack APRN.[employer] Work Phone: [facility] 10-26-2023 08:27-0400 Heart rate 94 /min Zaira Mack APRN.[employer]ER [employer] Work Phone: [facility] 10-26-2023 08:27-0400 Respiratory rate 18 /min Zaira Mack APRN.[employer] Work Phone: [facility] 10-26-2023 08:27-0400 SaO2% (BldA) [Mass fraction] 98 % Zaira Mack APRN.[employer] Work Phone: [facility] 10-26-2023 08:27-0400 Systolic blood pressure 168 mm[Hg] Zaira Mack APRN.[employer] Work Phone: [facility] Encounters Encounter Date Encounter Type Care Provider Facility Start: 04-17-2025 End: 04-17-2025 ambulatory ALLISON GARCIA Facility:[facility] Start: 03-30-2025 End: 03-30-2025 ambulatory RACHELLE ALVAREZ Facility:[facility] Start: 03-25-2025 End: 03-25-2025 ambulatory ALLISON GARCIA Facility:[facility] Start: 03-23-2025 End: 03-23-2025 ambulatory KEO BEAL Facility:[facility] Start: 03-21-2025 ambulatory ALLISON Velazquez acility:[facility] Start: 03-20-2025 End: 03-20-2025 ambulatory KEO BEAL Facility:[facility] Start: 02-25-2025 End: 02-25-2025 Patient encounter procedure Allison Nortonsarthakjerry GRAY Work Phone: Orthopaedics Comment on above: Chronic left shoulde r pain (Primary Dx); Complete tear of left rotator cuff, unspecified whether traumatic; Shoulder impingement; Bursitis of left shoulder; Tendinitis of left shoulder Start: 02-25-2025 End: 02-25-2025 ambulatory ALLISON NORTONSARTHAKJERRY Facility:[facility] Start: 02-25-2025 End: 02-25-2025 Subsequent hospital visit by physician [facility] Mcgeena Teddy Work Phone: Radiology Comment on above: Left shoulder pain, unspecified chronicity [M25.512] Start: 02-17-2025 End: 02-17-2025 Orders Only Allison Nortonchloé GRAY Work Phone: Orthopaedics Comment on above: Left shoulder pain, unspecified chronicity (Primary Dx) Start: 10-26-2023 End: 10-26-2023 Subsequent hospital visit by physician [facility] Carol Work Phone: Radiology Comment on above: Pain [R52] Start: 10-26-2023 End: 10-26-2023 Patient encounter procedure Zaira Mack APRN.[employer]ER [employer] Work Phone: [facility] Comment on above: Pain (Primary Dx) Start: 09-12-2010 End: 09-12-2010 Telephone encounter Francoise Mcneal Work Phone: OB/Gynecology Comment on above: Results Procedures Date Procedure Procedure Detail Performing Clinician Start: 10-26-2023 Radex hand minimum 3 views Zaira Mack APRN.[employer]ER [employer] Work Phone: Start: 03-31-2010 Lipid 1996 panel - S leandro or Plasma Allison Garcia DO Work Phone: Plan of Treatment Date Care Activity Detail Author Start: 03-25-2025 End: 03-25-2025 Patient encounter procedure 03/25/2025 9:15 AM EDT Office Visit Orthopaedics [address] [address] Allison Garcia DO [address] [place], [place] [id number] mri follow up Orthopaedics Comment on above: mri follow up Start: 03-21-2025 End: 03-21-2025 Patient encounter procedure 03/21/2025 10:40 AM EDT Appointment Radiology [address] [place] [address] Chronic left shoulder pain [M25.512, G89.29] Radiology Comment on above: Chronic left shoulde r pain [M25.512, G89.29] Start: 03-20-2025 End: 03-20-2025 Patient encounter procedure 03/20/2025 12:15 PM EDT OT/PT/Speech Visit [facility] [address] [place] [address] Keo Beal, PT, DPT [address] [place] [address] Chronic left shoulder pain [M25.512, G89.29] [facility] Comment on above: Chronic left shoulde r pain [M25.512, G89.29] Start: 02-25-2025 End: 02-25-2025 Patient encounter procedure 02/25/2025 11:00 AM EDT Office Visit Orthopaedics [address] [address] Allison Garcia DO [address] [place], [place] [id number] LEFT SHOUDLER PAIN Orthopaedics Comment on above: LEFT SHOUDLER PAIN Start: 02-23-2025 Influenza vaccination Influenza Vacc ine (#1) [facility] Start: 2024 Diabetes Screening Diabetes Screenin g [facility] Start: 2024 Lipid panel Lipid Screening [facility] Start: 2024 Screening for malign ant neoplasm of colon [facility] Start: 02-24-2024 Covid-19 Vaccine ( season) Covid-19 Vaccine ( season) [facility] Start: 02-24-2024 Influenza vaccination C [facility] Start: 02-23-2023 Covid-19 Vaccine ( season) Covid-19 Vaccine ( season) [facility] Start: 03-18-2021 Urine microalbumin profile [facility] Start: 02-23-2021 Influenza vaccination INFLUENZ A (Season Ended) [facility] Start: 2019 Mammography MAMMOGRAM [facility] Start: 2019 Screening for malign ant neoplasm of breast Mammogram Screening [facility] Start: 04-11-2015 HPV TESTING HPV TESTING [facility] Start: 04-11-2015 PAP TESTING PAP TESTING [facility] Start: 04-11-2015 Screening for malign ant neoplasm of cervix [facility] Start: 2006 HPV Vaccine (1 - 3-d ose SCDM series) HPV Vaccine (1 - 3-dose SCDM series) [facility] Start: 1998 Hepatitis B Vaccine (1 of 3 - 19+ 3-dose series) Hepatitis B Vaccine (1 of 3 - 19+ 3-dose series) [facility] Start: 1997 Anxiety Screening Anxiety Screening [facility] Start: 1997 HEPATITIS C SCREENING HEPATITIS C [facility] Start: 1997 Hepatitis C screening Hepatitis C [facility] Start: 1991 Adult depression screening assessment DEPRESSION SCREENING [facility] End: 03-27-2026 MR Shoulder - left WO contrast MRI SHOULDER WO IVCON LEFT Radiology Routine Chronic left shoulder pain Complete tear of left rotator cuff, unspecified whether traumatic Shoulder impingement Bursitis of left shoulder Tendinitis of left shoulder 1 Occurrences starting 02/25/2025 until 03/27/2026 [facility] Work Phone: Comment on above: 1 Occurrences starti ng 02/25/2025 until 03/27/2026 End: 03-19-2026 XR Shoulder - left 3 Views XR SHOULDER GENERAL 3V OR MORE AP/TRUE AP/OTHER LEFT Radiology Routine Left shoulder pain, unspecified chronicity 1 Occurrences starting 02/17/2025 until 03/19/2026 [facility] Work Phone: Comment on above: 1 Occurrences starti ng 02/17/2025 until 03/19/2026 XR Shoulder - left 3 Views XR SHOULDER GENERAL 3V OR MORE AP/TRUE AP/OTHER LEFT Radiology Routine Left shoulder pain, unspecified chronicity 02/25/2025 11:11 AM EDT [facility] Work Phone: Immunizations Immunization Date Immunization Notes Care Provider Melisa carranza 03-18-2011 tetanus toxoid, redu real diphtheria toxoid, and acellular pertussis vaccine, adsorbed Zaira Mack APRN.[employer] Work Phone: [facility] 12-29-2010 RHO(D) immune globul in- IV or IM Zaira Mack APRN.[employer] Work Phone: [facility] Payers Date Payer Category Payer [employer] [facility] BLUE ACCE SS PPO [id number] 2024 Unknown [id number] 2020 Unknown [employer] BLUE ACCE SS PPO [id number] 2020-Present [phone] [address] [place] [address] PPO [id number] 2009 Private Health Insurance [facility] EPO [id number] 2009-2011 EPO [id number] Social History Date Type Detail Facility Start: 08-11-2010 Tobacco smoking stat us NHIS Never smoker [facility] Start: 08-11-2010 End: 02-25-2025 Alcohol intake Current drinker of alcohol (finding) [facility] Start: 1980 Sex Assigned At Not on file C [facility] Start: 10-26-2023 End: 02-25-2025 History of Social function [facility] Start: 10-26-2023 End: 02-25-2025 Tobacco use panel [facility] Start: 05-26-2012 Sex Female [facility] Clinical Notes 09-12-2010 to 04-23-2025 Allison Garcia, DO - 02/25/2025 11:11 AM Sharon Calderon Tech - 02/25/2025 10:40 AM Mary Arroyo RT(R) - 10/26/2023 8:40 AM Zaira Blevins APRN.[employer] - 10/26/2023 8:32 AM EDT Note Date & Type Note Facility 04-23-2025 Note HNO ID: [id number] Author: KEO BEAL PT, DPT Service: ? Author Type: Physical Therapist Type: Progress Notes Filed: 04/23/2025 14:44 Note Text: 04/23/2025 [facility] PHYSICAL THERAPY DISCONTINUANCE OF CARE Plan of Care Period: Start of Care Date: 03/20/25 Last Visit Date: 03/23/2025 Therapy Program: The following is a summary of the interventions provided for this episode of care; Therapeutic exercise and Manual therapy Assessment: Based on most recent visit, patient was progressing slower than expected toward functional goals based on pain levels. Unable to formally assess goal achievement, as patient has not returned to therapy or scheduled additional follow-up appointments. Reason for Discontinuation of Care: Patient has not returned to therapy or scheduled additional follow-up appointments. Keo Beal PT, DPT [facility] 04-17-2025 Note HNO ID: [id number] Author: ALLISON GARCIA, DO Service: ? Author Type: Physician Type: Progress Notes Filed: 04/23/2025 10:18 Note Text: Follow Up Visit Chief Complaint The patient is a 44-year-old female presenting for evaluation of persistent right shoulder pain following an AC joint corticosteroid injection. Patient presents with: Left Shoulder - Established Patient, Follow Up, Pain History of Present Illness PAIN EVALUATION 04/17/2025 0625 04/17/2025 1233 Pain Level: 3 4 Pain Location: Shoulder-Left Shoulder-Left Description: Aching;Sharp;Sore Sharp Duration Amount of Time: 2 -- ongoing Duration Units: Minutes -- Frequency: Intermittent Intermittent Intervention/Comfort measure: Relaxation;Cold Medication;Reposition;Relaxation HPI: Antione Deluca is a 44 year old female for a follow up visit left shoulder pain. Pain history is noted as above. She was seen by where she received a left AC joint CSI. She did have 75% pain relief but continues to have intermittent pain. Currently she is taking Tylenol for pain control. Is there any overall improvement in your condition? Yes Any new injury, since being seen last: No Екатерина Deluca is a 44-year-old female presenting for follow-up of shoulder pain. Shoulder Pain: - Received an AC joint injection on 03/30, with improvement noted after one week. - Pain localized to the clavicle and AC joint area. - Able to perform daily activities such as putting on a bra and placing dishes on the top shelf. - Pain is intermittent and not consistently triggered by specific activities. - Reports fewer headaches and increased relaxation in the trapezius muscle. - Engaging in physical therapy exercises to maintain muscle looseness. REVIEW OF SYMPTOMS: Patient did not have, and does not currently have, any weight loss, malaise, fever, chills, headache, chest pain, chest pressure, palpitations, cough, shortness of breath, orthopnea, paroxsymal nocturnal dyspnea, nausea, vomiting, diarrhea, constipation, melena, hematochezia, urinary difficulties, prolonged bleeding, easily bruising, heat or cold intolerance, new onset joint pain or swelling, new onset extremity weakness or numbness, new onset auditory or visual disturbances, lightheadedness, dizziness, partial loss of consciousness or full loss of consciousness. Musculoskeletal: (+) shoulder pain Neurological: (+) headaches Current Outpatient Medications Medication Sig diphenhydramine HCl (BENADRYL ALLERGY ORAL) Take by mouth. fexofenadine HCl (HONG ORAL) Take by mouth. mv-mn/iron fum/FA/omega3,6,9#3 (WOMEN'S MULTI ORAL) Take by mouth. No current facility-administered medications for this visit. Physical Exam Vitals: LMP 06/11/2010 Psych: Pleasant, good affect and mood General Appearance: Well appearing, alert, in no acute distress, well-hydrated, well nourished.. Skin: Skin color, texture, turgor normal, no suspicious rashes or lesions. Peripheral Pulses: Normal. Neurologic: Gait normal. Reflexes normal and symmetric. Sensation grossly intact.. Lymph Nodes: No cervical lymphadenopathy, No supraclavicular lymphadenopathy, No axillary lymphadenopathy., and No inguinal lymphadenopathy.. Respiratory: No recent pulmonary infection, hemoptysis, chronic cough, or shortness of breath at rest Rheumatologic: Joint deformities: left shoulder pain Right Shoulder Exam Right shoulder exam is normal. Tenderness The patient is experiencing no tenderness. Range of Motion Active abduction: normal Passive abduction: normal Extension: normal External rotation: normal Forward flexion: normal Internal rotation 0 degrees: normal Internal rotation 90 degrees: normal Muscle Strength Abduction: 5/5 Internal rotation: 5/5 External rotation: 5/5 Supraspinatus: 5/5 Subscapularis: 5/5 Biceps: 5/5 Tests Apprehension: negative Ashby test: negative Cross arm: negative Impingement: negative Other Erythema: absent Sensation: normal Pulse: present Comments: B/l med, uln, rad, ax nerves intact Left Shoulder Exam Tenderness The patient is experiencing tenderness in the clavicle. Range of Motion Active abduction: abnormal Passive abduction: normal Extension: normal External rotation: abnormal Forward flexion: normal Internal rotation 0 degrees: normal Internal rotation 90 degrees: normal Muscle Strength Abduction: 5/5 Internal rotation: 5/5 External rotation: 5/5 Supraspinatus: 5/5 Subscapularis: 5/5 Biceps: 5/5 Tests Apprehension: negative Ashby test: negative Cross arm: negative Impingement: negative Other Erythema: absent Sensation: normal Pulse: present Assessment and Plan Radiographs: I have independently reviewed films and my findings are the same. and I have reviewed the images with the patient and family. Imaging: - MRI Shoulder: No full-thickness rotator cuff tear; predominant (more content not included)... [facility] 03-30-2025 Note HNO ID: [id number] Author: RACHELLE ALVAREZ, DO Service: ? Author Type: Physician Type: Progress Notes Filed: 03/30/2025 11:12 Note Text: CHIEF COMPLAINT: Patient presents with: Left Shoulder - New, Pain: Injection possibly PAIN EVALUATION 03/29/2025 0915 Pain Level: 6 Pain Location: Shoulder-Left Description: Aching;Sharp;Shooting;Stabbing;T enderness;Throbbing Duration Amount of Time: 6 Duration Units: Months Frequency: Continuous Intervention/Comfort measure: Medication;Relaxation;Cold SUBJECTIVE: Antione Deluca is a 44 year old female here for consideration of USG L AC joint CSI, referral from Dr. Allison Garcia. Last Hgba1c: Hemoglobin A1C (%) Date Value 03/31/2010 5.6 Notes reviewed: Orthopedic surgery note(s) reviewed - dated 03/25/2025 Past medical, surgical, social and family history were reviewed. Allergies and current medications reviewed. REVIEW OF SYSTEMS: GENERAL: no recent illness, unexplained weight loss or weight gain NEUROLOGIC: no numbness, tingling, or weakness except as mentioned in HPI, no known neuro problems or deficits SKIN: No rash or new skin changes and no chronic skin problems MSK: as mentioned in HPI PHYSICAL EXAMINATION: GENERAL APPEARANCE: Well appearing, in no acute distress, alert and oriented x3. L shoulder - cool to the touch without significant effusion. Skin is intact. Patient remains distally neurovascularly intact at baseline. IMAGING: No imaging was performed today. Last MRI Shoulder - Impression Only MRI SHOULDER WO IVCON LEFT Exam End: 03/21/2025 11:34 AM (Final result) Impression: IMPRESSION: NONDISPLACED STRESS FRACTURE OF DISTAL CLAVICLE. 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 TENDINOSIS OF SUPRASPINATUS TENDON. NO ROTATOR CUFF TEAR. ... 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 Injection performed as detailed in the procedure note below. Medium Joint Arthro/Inj: L AC 03/30/2025 11:11 AM The procedure site was prepped in the usual sterile fashion. Details:Musculoskeletal ultrasound was utilized to successfully localize placement of the injection needle at the appropriate site. Ultrasound images demonstrating local vasculature and demonstrating injection of solution were saved. Medications: 6 mg betamethasone acetate-betamethasone sodium phosphate 6 mg/mL Anesthetics: 1 mL lidocaine (PF) 10 mg/mL (1 %) Outcome: tolerated well, no immediate complications Post-injection instructions were reviewed with the patient and the patient voiced understanding of these instructions. Informed Consent Consent Obtained: Verbal [place] Protocol A moment to CARE was completed. SIGN IN Personnel directly involved with the procedure wore the appropriate PPE. Patient/Surrogate Stated/Verified: Patient name, Date of , Relevant allergies and Intended procedure TIME OUT Relevant labs, photos, and/or imaging studies have been reviewed. Intended patient and procedure match source documents. Correct side/site marked and visible. Medications required for procedure verified. SIGN OUT All instruments, equipment, possible retained foreign bodies accounted for. The post-procedure POC has been communicated to the patient or surrogate. Follow-up: as per consulting physician Written instructions (see patient instructions) and verbal health teaching given to patient, patient verbalizes understanding and agrees with treatment plan. Electronically Signed: Rachelle Alvarez DO Sports Medicine Physician Medical Decision Making [facility] 03-25-2025 Note HNO ID: [id number] Author: ALLISON GARCIA DO Service: ? Author Type: Physician Type: Progress Notes Filed: 04/01/2025 17:56 Note Text: Follow Up Visit Chief Complaint The patient is a 44-year-old female presenting for evaluation of persistent right shoulder pain and review of MRI findings. Patient presents with: Left Shoulder - Established Patient, Follow Up, Results - Mri, Pain History of Present Illness PAIN EVALUATION 03/24/2025 1443 Pain Level: 8 Pain Location: Shoulder-Left Description: Aching;Sharp;Shooting;Sore;Tende rness;Tightness Duration Amount of Time: 6 Duration Units: Months Frequency: Continuous Intervention/Comfort measure: Medication;Cold Comments: Constant HPI: Antione Deluca is a 44 year old female for a follow up visit for left shoulder pain. She is here today to discuss MRI results. She is currently in PT and reports increased pain since starting PT. Pain history is noted as above. Is there any overall improvement in your condition? No Any new injury, since being seen last: No Right Shoulder Pain: - Pain localized to the anterior shoulder and trapezius area. - Aggravated by physical therapy (PT); Екатерина reports breaking down in tears during a session. - Recent MRI reviewed by the clinician. - Undergoing PT with Keo; first session was last Sunday, followed by dry needling on Sunday. - Reports no improvement with dry needling. - Has been limiting overhead activities since October without significant relief. Last MRI Shoulder - Impression Only MRI SHOULDER WO IVCON LEFT Exam End: 03/21/2025 11:34 AM (Final result) Impression: IMPRESSION: NONDISPLACED STRESS FRACTURE OF DISTAL CLAVICLE. 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 TENDINOSIS OF SUPRASPINATUS TENDON. NO ROTATOR CUFF TEAR. ... Impression IMPRESSION: NONDISPLACED STRESS FRACTURE OF DISTAL CLAVICLE. 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 TENDINOSIS OF SUPRASPINATUS TENDON. NO ROTATOR CUFF TEAR. 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 BICEPS TENDINOSIS. REVIEW OF SYMPTOMS: Patient did not have, and does not currently have, any weight loss, malaise, fever, chills, headache, chest pain, chest pressure, palpitations, cough, shortness of breath, orthopnea, paroxsymal nocturnal dyspnea, nausea, vomiting, diarrhea, constipation, melena, hematochezia, urinary difficulties, prolonged bleeding, easily bruising, heat or cold intolerance, new onset joint pain or swelling, new onset extremity weakness or numbness, new onset auditory or visual disturbances, lightheadedness, dizziness, partial loss of consciousness or full loss of consciousness. Musculoskeletal: (+) shoulder pain, (+) neck pain Current Outpatient Medications Medication Sig diphenhydramine HCl (BENADRYL ALLERGY ORAL) Take by mouth. fexofenadine HCl (HONG ORAL) Take by mouth. mv-mn/iron fum/FA/omega3,6,9#3 (WOMEN'S MULTI ORAL) Take by mouth. No current facility-administered medications for this visit. Physical Exam Vitals: LMP 06/11/2010 Psych: Pleasant, good affect and mood General Appearance: Well appearing, alert, in no acute distress, well-hydrated, well nourished.. Skin: Skin color, texture, turgor normal, no suspicious rashes or lesions. Peripheral Pulses: Normal. Neurologic: Gait normal. Reflexes normal and symmetric. Sensation grossly intact.. Lymph Nodes: No cervical lymphadenopathy, No supraclavicular lymphadenopathy, No axillary lymphadenopathy., and No inguinal lymphadenopathy.. Respiratory: No recent pulmonary infection, hemoptysis, chronic cough, or shortness of breath at rest Rheumatologic: Joint deformities: left shoulder pain Right Shoulder Exam Right shoulder exam is normal. Tenderness The patient is experiencing no tenderness. Range of Motion Active abduction: normal Passive abduction: normal Extension: normal External rotation: normal Forward flexion: normal Internal rotation 0 degrees: normal Internal rotation 90 degrees: normal Muscle Strength Abduction: 5/5 Internal rotation: 5/5 External rotation: 5/5 Supraspinatus: 5/5 Subscapularis: 5/5 Biceps: 5/5 Tests Apprehension: negative Ashby test: negative Cross arm: negative Impingement: negative Other Erythema: absent Sensation: normal Pulse: present Comments: B/l med, uln, rad, ax nerves intact Left Shoulder Exam Tenderness The patient is experiencing tenderness in the clavicle. Range of Motion Active abduction: abnormal Passive abduction: normal Extension: normal External rotation: abnormal Forward flexion: normal Internal rotation 0 degrees: normal Internal rotation 90 degrees: normal Muscle Strength Abduction: 5/5 Internal rotation: 5/5 External rotation: 5/5 Supraspinatus: 5/5 Subscapularis: (more content not included)... [facility] 03-23-2025 Note HNO ID: [id number] Author: KEO BEAL, PT, DPT Service: ? Author Type: Physical Therapist Type: Progress Notes Filed: 03/23/2025 11:29 Note Text: Episode Visit Count: 2 Therapist That Will Accept/Oversee The Plan Of Care: Keo Beal Start of Care Date: 03/20/25 Onset Date: 02/25/25 Patient Identified by Name and Date of : Yes REHABILITATION AND SPORTS THERAPY PHYSICAL THERAPY TREATMENT NOTE ASSESSMENT: Antione Deluca tolerated dry needling appropriately this date as indicated by no adverse reaction and reproduction of local sxs.. . The patient will continue to benefit from ongoing skilled physical therapy to progress toward set goals. PLAN FOR NEXT VISIT: continue dry needling, review MRI SUBJECTIVE: Pt notes increased pain after last visit and a busy weekend. Pt's weekend consisted of traveling ~ 2 hours in car and repetetive lifting/carrying wood. Pt reports using lacrosse ball for massage. Pain: Pain Pain Level: 7 Pain Location: Shoulder - Left Description: Aching Frequency: Continuous Post Treatment Pain Post Treatment Pain Level: No Change OBJECTIVE MEASURES WITH LEVEL OF FUNCTION: Shoulder Observations L Shoulder Palpation Tenderness: Trapezius (Upper) UE AROM L Shoulder Flex: 160 Degrees L Shoulder ABduction: 155 Degrees (pain) TREATMENT: Therapeutic Exercise: 1: *SMR via lacrosse ball to upper trap, review 2: *upper trap stretch, gentle, 3 x 30 seconds 3: *thoracic extension AAROM, foam, 3 sec hold, 2 x 10 4: thoracic rotation AAROM, seated, 3 sec hold, 2 x 10 ea 5: *levator stretch, 3 x 30 sec, R, gentle 6: *shoulder flexion AROM, supine , flexion/extension #green x 10 increased pain, no resistance x 15 7: *shoulder ABD, S/L, 2 x 15 Skilled Intervention: Patient was educated in proper exercise technique and purpose for exercises. Reviewed and educated patient on additions/changes for home exercise program as above (*). Manual Therapy: 1: Dry needling, see progress note Dry needling to following Trigger points: L upper trap Needle length: 50mm 2.0 in . [place] used 2, needles removed 2. Dry needling technique used: Pistoning. Dry needling to following Trigger points: L levator Needle length: 50mm 2.0 in . [place] used 1, needles removed 1. Dry needling technique used: Pistoning. Patient education on purpose, precautions, safety, risks, and other treatment options regarding dry needling. Verbal consent received. Skilled Intervention: Manual skills to improve joint mobility, ROM, and decrease pain. Utilized anatomy knowledge of the clinician, and assessment of patient's response to intervention. Billing Therapeutic Exercise Treatment Minutes: 26 Manual TherapyTreatment Minutes: 20 Skilled Treatment Time Minutes (timed and untimed codes): 46 Total Session Time (minutes): 46 Session Start Time : 1019 Session Stop Time : 1105 Keo Beal PT, [facility] 03-21-2025 Note HNO ID: [id number] Author: MAURO STORY MRI Tech Service: Radiology Author Type: Neurobiologist Type: Progress Notes Filed: 03/21/2025 11:12 Note Text: Radiology Service Progress Note PATIENT NAME: Antione Deluca DATE OF SERVICE: March 21, 2025 TIME: 11:12 AM PATIENT IDENTITY VERIFICATION COMPLETED USING TWO (2) IDENTIFIERS: Name and Date of confirmed by patient verbally and Name and Date of confirmed by identification band. FALL SCREENING: Has the patient had 2 falls in the last year or 1 fall with injury or currently using an Ambulatory Assistive Device (Walker, Cane, Wheelchair, Crutches, etc.)? No PATIENT GENDER DATA: Assigned female at . status: : No status: NO. PATIENT RELEVANT IMPLANT DATA REVIEWED: Yes PATIENT PRESENTS WITH AN IMPLANTABLE OR ATTACHED PRIVACY SPECIALIST: No RADIOLOGY DEPARTMENT: MR; Exam(s) Completed: Upper MSK: Shoulder, left. Anesthesia: No. Aromatherapy Administered: Yes PERIPHERAL IV DATA: Not applicable SIGNED BY: ISAC Woo March 21, 2025 11:[address] [facility] 03-20-2025 Note HNO ID: [id number] Author: KOE BEAL PT, DPT Service: ? Author Type: Physical Therapist Type: Progress Notes Filed: 03/20/2025 15:50 Note Text: Episode Visit Count: 1 Therapist That Will Accept/Oversee The Plan Of Care: Keo Beal Start of Care Date: 03/20/25 Onset Date: 02/25/25 Patient Identified by Name and Date of : Yes REHABILITATION AND SPORTS THERAPY PHYSICAL THERAPY EVALUATION PLAN OF CARE: Assessment: Antione Deluca presents with chief complaint of chronic L upper trap pain that interferes with Comments sleeping, reaching overhead, softball, reaching behind. The patient presents with impairments in overall function, range of motion, strength, tissue tenderness, and functional movement patterns. PROMIS? (Patient-Reported Outcomes Measurement Information System) scores were reviewed and identified as a rehabilitation concern. Prognosis for therapy is Good due to: current objective clinical presentation . Most likely dx includes cervical facet dysfunction secondary to (+) quadrant/distraction special test, unilateral disaster or damage control specialist weakness, and hx of numbness to hand. Differential dx includes both supraspinatus strain or subacromial impingement. The patient will benefit from skilled therapy services to meet the goals established for this plan of care as noted below. Goals for Episode of Care: established 03/20/25 Patient will demonstrate a negative L quadrant special test Patient will improve L disaster or damage control specialist strength within 10 percent of dominant R UE Patient will improve L shoulder strength to 5/5 Patient will demonstrate pain free shoulder AROM in all planes [place] in home exercise program. Patient will decrease pain rating by 2 points to meet minimal clinical important difference for numeric pain rating scale. Patient Goals: decrease pain, improve tolerance for L ar movement Time Frame for Goals and Treatment : 04/19/25 Planned Interventions, Frequency, and Duration: Current Frequency: 1x/week Duration: 4 weeks Total Number of Visits Planned: 4 Planned Treatment Interventions: Therapeutic exercise (29207), Neuromuscular re-education (44606), Manual therapy (93939), Therapeutic activities (34785), Self-longterm management (59874), Patient/Family/Caregiver Education PLAN FOR NEXT VISIT: dry needling, review MRI Patient demonstrates good understanding of plan of care and treatment. The above goals and plan of care were discussed and agreed upon by patient/family. SUBJECTIVE: chronic L upper trap region. Pt states that sometimes pain will radiate to shoulder. Pt states that sxs have been ongoing for ~ 6 months, pt denies any specific incident or exacerbating factor. Pt had prevoiusly been seen by outside PT and ortho. Pt to undergo MRI tomorrow. Pt had numbness to L hand at one point which has asince resolved. Pt notes a chronic history of migrains/headaches, 3-4 time sper week. 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 Intake Information: Prescription present Previous Treatment: Physical Therapy , Injections Falls Interview: No positive findings with falls interview Pain: Pain Pain Level: 2 (average pain: 6/10) Pain Location: Shoulder - Left (upper trap region) Description: Aching Frequency: Continuous Post Treatment Pain Post Treatment Pain Level: No Change PROMIS Scales 03/20/2025 Higher is Better Phys Func - T Score 43 (mild dysfunction) Phys Func - Percentile 24 Self-Eff Symptom - T Score 46 (Average) Self-Eff Symptom - Percentile 34 T-Score and Percentile Interpretation T-scores: mean of general population = 50. 5 points is clinically meaningfully difference Percentiles provide an indication of how the patient's score ranks in relation to the general population. Higher percentile rankings indicate better function/quality of life. 50th percentile is the average of the general population and indicates half of respondents had a worse score. OBJECTIVE MEASURES WITH LEVEL OF FUNCTION: Posture / Alignment Posture: Forward head, Increased thoracic kyphosis, Rounded shoulders Shoulder Observations L Shoulder Palpation Tenderness: Trapezius (Upper) Cervical Spine ROM Cervical ROM : Limitation AROM Cervical Flexion AROM: Moderate limitation Cervical Extension AROM: Moderate limitation Cervical Side-Bend Right AROM: Normal Cervical Side-Bend Left AROM: Normal Cervical Rotation Right AROM: Normal Cervical Rotation Left AROM: Normal UE AROM R Shoulder Flex: 160 Degrees R Shoulder ABduction: 160 Degrees R Shoulder Internal Rotation (Functional): T10, FMS 1 R Shoulder External Rotation: 60 Degrees R Shoulder Exte (more content not included)... [facility] 02-25-2025 Note HNO ID: [id number] Author: ALLISON GARCIA, DO Service: ? Author Type: Physician Type: Progress Notes Filed: 02/25/2025 12:46 Note Text: Reason for Visit/Chief Complaint The patient is a 44-year-old female presenting for a second-opinion evaluation of left shoulder pain with associated trapezius tightness. Accompanied by her mother. Patient presents with: Left Shoulder - New, Pain History of Present Illness: PAIN EVALUATION 02/25/2025 1112 Pain Level: 7 Pain Location: Shoulder-Left Description: Aching;Stabbing Duration Amount of Time: 6 Duration Units: Months Frequency: Continuous Intervention/Comfort measure: Exercise;Relaxation;Reposition HPI: Patient presents with left shoulder pain. She denies any known injury states she has had pain about 6 months. She states that she has completed PT which helped with her numbness in her fingers but still having pain. She also tried meloxicam but had to stop due to side effects.Left Shoulder Pain: - Pain localized inside the shoulder, occasionally radiating into the neck and throat. - Екатерина is able to induce pain by applying pressure to the area. - Pain exacerbated by certain movements, particularly when pushing away with arms. - No specific inciting event or trauma recalled. - Previous physical therapy resolved initial numbness in Екатерина?s hands. - Cortisone injection provided minimal relief. 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 Review of Systems: Patient did not have, and does not currently have, any weight loss, malaise, fever, chills, headache, chest pain, chest pressure, palpitations, cough, shortness of breath, orthopnea, paroxsymal nocturnal dyspnea, nausea, vomiting, diarrhea, constipation, melena, hematochezia, urinary difficulties, prolonged bleeding, easily bruising, heat or cold intolerance, new onset joint pain or swelling, new onset extremity weakness or numbness, new onset auditory or visual disturbances, lightheadedness, dizziness, partial loss of consciousness or full loss of consciousness. Current Outpatient Medications on File Prior to Visit Medication Sig diphenhydramine HCl (BENADRYL ALLERGY ORAL) Take by mouth. fexofenadine HCl (HONG ORAL) Take by mouth. mv-mn/iron fum/FA/omega3,6,9#3 (WOMEN'S MULTI ORAL) Take by mouth. sertraline (ZOLOFT) 25 mg ORAL tablet Take 1 tablet by mouth once daily. (Patient not taking: Reported on 02/25/2025) ibuprofen 600 mg ORAL tablet Take 1 tablet by mouth every 6 hours as needed for Pain. (Patient not taking: Reported on 02/25/2025) ALBUTEROL 90 MCG/ACTUATION AEROSOL INHALER 2 puffs every four (4) hours as needed (Patient not taking: Reported on 02/25/2025) No current facility-administered medications on file prior to visit. ALLERGIES Allergen Reactions Eggplant Pollen plus Hay Physical Exam: Vitals: [facility] 06/11/2010 Psych: Pleasant, good affect and mood General Appearance: Well appearing, alert, in no acute distress, well-hydrated, well nourished.. Skin: Skin color, texture, turgor normal, no suspicious rashes or lesions. Peripheral Pulses: Normal. Neurologic: Gait normal. Reflexes normal and symmetric. Sensation grossly intact.. Lymph Nodes: No cervical lymphadenopathy, No supraclavicular lymphadenopathy, No axillary lymphadenopathy., and No inguinal lymphadenopathy.. Respiratory: No recent pulmonary infection, hemoptysis, chronic cough, or shortness of breath at rest Rheumatologic: Joint deformities: left shoulder pain Right Shoulder Exam Right shoulder exam is normal. Tenderness The patient is experiencing no tenderness. Range of Motion Active abduction: normal Passive abduction: normal Extension: normal External rotation: normal Forward flexion: normal Internal rotation 0 degrees: normal Internal rotation 90 degrees: normal Muscle Strength Abduction: 5/5 Internal rotation: 5/5 External rotation: 5/5 Supraspinatus: 5/5 Subscapularis: 5/5 Biceps: 5/5 Tests Apprehension: negative Ashby test: negative Cross arm: negative Impingement: negative Other Erythema: absent Sensation: normal Pulse: present Comments: B/l med, uln, rad, ax nerves intact Left Shoulder Exam Tenderness The patient is experiencing tenderness in the biceps tendon (trapezius). Range of Motion Active abduction: normal Passive abduction: normal Extension: normal External rotation: abnormal Forward flexion: normal Internal rotation 0 degrees: normal Internal rotation 90 degrees: normal Muscle Strength Abduction: 5/5 Internal rotation: 5/5 External rotation: 4/5 Supraspinatus: 4/5 Subscapularis: 5/5 Biceps: 5/5 Tests Apprehension: negative Ashby test: positive Cross arm: negative Impingement: positive Other Erythema: absent Sensation: normal Pulse: present Imaging: Imaging: - Should (more content not included)... [facility] 02-25-2025 History of Presen t illness Narrative Reason for Visit/Chief Complaint The patient is a 44-year-old female presenting for a second-opinion evaluation of left shoulder pain with associated trapezius tightness. Accompanied by her mother. Patient presents with: Left Shoulder - New, Pain History of Present Illness: PAIN EVALUATION 02/25/2025 1112 Pain Level: 7 Pain Location: Shoulder-Left Description: Aching;Stabbing Duration Amount of Time: 6 Duration Units: Months Frequency: Continuous Intervention/Comfort measure: Exercise;Relaxation;Reposition HPI: Patient presents with left shoulder pain. She denies any known injury states she has had pain about 6 months. She states that she has completed PT which helped with her numbness in her fingers but still having pain. She also tried meloxicam but had to stop due to side effects.Left Shoulder Pain: - Pain localized inside the shoulder, occasionally radiating into the neck and throat. - Екатерина is able to induce pain by applying pressure to the area. - Pain exacerbated by certain movements, particularly when pushing away with arms. - No specific inciting event or trauma recalled. - Previous physical therapy resolved initial numbness in Екатерина s hands. - Cortisone injection provided minimal relief. 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 Review of Systems: Patient did not have, and does not currently have, any weight loss, malaise, fever, chills, headache, chest pain, chest pressure, palpitations, cough, shortness of breath, orthopnea, paroxsymal nocturnal dyspnea, nausea, vomiting, diarrhea, constipation, melena, hematochezia, urinary difficulties, prolonged bleeding, easily bruising, heat or cold intolerance, new onset joint pain or swelling, new onset extremity weakness or numbness, new onset auditory or visual disturbances, lightheadedness, dizziness, partial loss of consciousness or full loss of consciousness. Current Outpatient Medications on File Prior to Visit Medication Sig diphenhydramine HCl (BENADRYL ALLERGY ORAL) Take by mouth. fexofenadine HCl (HONG ORAL) Take by mouth. mv-mn/iron fum/FA/omega3,6,9#3 (WOMEN'S MULTI ORAL) Take by mouth. sertraline (ZOLOFT) 25 mg ORAL tablet Take 1 tablet by mouth once daily. (Patient not taking: Reported on 02/25/2025) ibuprofen 600 mg ORAL tablet Take 1 tablet by mouth every 6 hours as needed for Pain. (Patient not taking: Reported on 02/25/2025) ALBUTEROL 90 MCG/ACTUATION AEROSOL INHALER 2 puffs every four (4) hours as needed (Patient not taking: Reported on 02/25/2025) No current facility-administered medications on file prior to visit. ALLERGIES Allergen Reactions Eggplant Pollen plus Hay Physical Exam: Vitals: [facility] 06/11/2010 Psych: Pleasant, good affect and mood General Appearance: Well appearing, alert, in no acute distress, well-hydrated, well nourished.. Skin: Skin color, texture, turgor normal, no suspicious rashes or lesions. Peripheral Pulses: Normal. Neurologic: Gait normal. Reflexes normal and symmetric. Sensation grossly intact.. Lymph Nodes: No cervical lymphadenopathy, No supraclavicular lymphadenopathy, No axillary lymphadenopathy., and No inguinal lymphadenopathy.. Respiratory: No recent pulmonary infection, hemoptysis, chronic cough, or shortness of breath at rest Rheumatologic: Joint deformities: left shoulder pain Right Shoulder Exam Right shoulder exam is normal. Tenderness The patient is experiencing no tenderness. Range of Motion Active abduction: normal Passive abduction: normal Extension: normal External rotation: normal Forward flexion: normal Internal rotation 0 degrees: normal Internal rotation 90 degrees: normal Muscle Strength Abduction: 5/5 Internal rotation: 5/5 External rotation: 5/5 Supraspinatus: 5/5 Subscapularis: 5/5 Biceps: 5/5 Tests Apprehension: negative Asbhy test: negative Cross arm: negative Impingement: negative Other Erythema: absent Sensation: normal Pulse: present Comments: B/l med, uln, rad, ax nerves intact Left Shoulder Exam Tenderness The patient is experiencing tenderness in the biceps tendon (trapezius). Range of Motion Active abduction: normal Passive abduction: normal Extension: normal External rotation: abnormal Forward flexion: normal Internal rotation 0 degrees: normal Internal rotation 90 degrees: normal Muscle Strength Abduction: 5/5 Internal rotation: 5/5 External rotation: 4/5 Supraspinatus: 4/5 Subscapularis: 5/5 Biceps: 5/5 Tests Apprehension: negative Ashby test: positive Cross arm: negative Impingement: positive Other Erythema: absent Sensation: normal Pulse: present Imaging: Imaging: - Shoulder X-ray: Mild acromioclavicular joint arthropathy with subchondral cystic changes. Normal glenohumeral alignment. No acute abnormalities. Assessment and Plan: 1. Chronic left shoulder pain (M25.512) 2. Complete tear of left rotator cuff, unspecified whether traumatic (M75.122) 3. Shoulder impingement (M25.819) 4. Bursitis of left shoulder (M75.52) 5. Tendinitis of left shoulder (M77.8) - Chronic left shoulder pain with prior numbness in the hand, now resolved with PT. - X-rays show intact joint spaces, no dislocation, and no evidence of rotator cuff tear; mild AC joint arthritis with cystic changes noted. - Weakness in external rotation on exam; prior corticosteroid injection provided minimal relief. - Order MRI of the left shoulder to further evaluate rotator cuff integrity and establish a baseline. - Refer to PT for dry needling to address trapezius muscle tightness and compensatory pain. - Educated patient on rationale for MRI prior to considering further steroid injections, including potential risks of worsening a partial rotator cuff tear. - Advised patient to await MRI results before interpreting findings independently; will review results together and discuss next steps. Today, in detail, through a thorough evaluation, we discussed possible etiologies of pain and our plans for further diagnostic and therapeutic interventions. We discussed strategies for decreasing pain and improving strength, stability and motion. Patient's questions were answered in detailed. Patient verbalizes understanding and agrees with the treatment plan as discussed. Recording using [employer] software for draft documentation of the visit was discussed with the patient/authorized b2b outside sales representative; all questions welcomed and answered. Patient/authorized b2b outside sales representative agreed to proceed Allison Garcia D.O. M.P.H. documented in this encounter [facility] 02-25-2025 History of Presen t illness Narrative Radiology Service Progress Note PATIENT NAME: Antione Deluca DATE OF SERVICE: February 25, 2025 TIME: 11:11 AM PATIENT IDENTITY VERIFICATION COMPLETED USING TWO (2) IDENTIFIERS: Name and Date of confirmed by patient verbally. FALL SCREENING: Has the patient had 2 falls in the last year or 1 fall with injury or currently using an Ambulatory Assistive Device (Walker, Cane, Wheelchair, Crutches, etc.)? No PATIENT GENDER DATA: Assigned female at . status: : No status: NO. PATIENT RELEVANT IMPLANT DATA REVIEWED: Not Applicable PATIENT PRESENTS WITH AN IMPLANTABLE OR ATTACHED PRIVACY SPECIALIST: No RADIOLOGY DEPARTMENT: General X-ray: Exam(s) Completed: Upper Extremity X-Ray(s): Shoulder, AP / TRUE AP / AXILLARY / SUPRA OUTLET left PERIPHERAL IV DATA: Not applicable SIGNED BY: Wilian Regalado February 25, 2025 11:11 AM documented in this encounter [facility] 02-25-2025 Note HNO ID: [id number] Author: SHARON KEVIN Tech Service: Radiology Author Type: Neurobiologist Type: Progress Notes Filed: 02/25/2025 11:11 Note Text: Radiology Service Progress Note PATIENT NAME: Antione Deluca DATE OF SERVICE: February 25, 2025 TIME: 11:11 AM PATIENT IDENTITY VERIFICATION COMPLETED USING TWO (2) IDENTIFIERS: Name and Date of confirmed by patient verbally. FALL SCREENING: Has the patient had 2 falls in the last year or 1 fall with injury or currently using an Ambulatory Assistive Device (Walker, Cane, Wheelchair, Crutches, etc.)? No PATIENT GENDER DATA: Assigned female at . status: : No status: NO. PATIENT RELEVANT IMPLANT DATA REVIEWED: Not Applicable PATIENT PRESENTS WITH AN IMPLANTABLE OR ATTACHED PRIVACY SPECIALIST: No RADIOLOGY DEPARTMENT: General X-ray: Exam(s) Completed: Upper Extremity X-Ray(s): Shoulder, AP / TRUE AP / AXILLARY / SUPRA OUTLET left PERIPHERAL IV DATA: Not applicable SIGNED BY: Wilian Regalado February 25, 2025 11:[address] [facility] 10-26-2023 History of Presen t illness Narrative Radiology Service Progress Note PATIENT NAME: Antione Deluca DATE OF SERVICE: October 26, 2023 TIME: 8:40 AM PATIENT IDENTITY VERIFICATION COMPLETED USING TWO (2) IDENTIFIERS: Name and Date of confirmed by patient verbally. FALL SCREENING: Has the patient had 2 falls in the last year or 1 fall with injury or currently using an Ambulatory Assistive Device (Walker, Cane, Wheelchair, Crutches, etc.)? No PATIENT GENDER DATA: Female. status: : No status: NO. PATIENT RELEVANT IMPLANT DATA REVIEWED: Yes PATIENT PRESENTS WITH AN IMPLANTABLE OR ATTACHED PRIVACY SPECIALIST: No RADIOLOGY DEPARTMENT: General X-ray: Exam(s) Completed: Upper Extremity X-Ray(s): Wrist, right and Hand, right PERIPHERAL IV DATA: Not applicable SIGNED BY: RT Cheryl(R) October 26, 2023 8:40 AM documented in this encounter [facility] 10-26-2023 History of Presen t illness Narrative Images from the original note were not included. Subjective Patient came in with complaints of right hand wrist pain. Patient says she caught a softball to the hand with her bare hand. 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 Patient says it does hurt to move it. Patient says there is bruising and swelling. Denies any loss of feeling. Patient said this happened yesterday. The history is provided by the patient. No supervisor modern languages was used. Hand Injury Review of Systems Constitutional: Negative. Skin: Negative. Objective Physical Exam Constitutional: Appearance: Normal appearance. Pulmonary: Effort: Pulmonary effort is normal. Skin: General: Skin is warm. Comments: Tender and swollen in the areas marked above with minimal bruising. Neurological: Mental Status: She is alert. 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 fexofenadine HCl (HONG ORAL) Take by mouth. mv-mn/iron fum/FA/omega3,6,9#3 (WOMEN'S MULTI ORAL) Take by mouth. sertraline (ZOLOFT) 25 mg ORAL tablet Take 1 tablet by mouth once daily. (Patient not taking: Reported on 10/26/2023) ibuprofen 600 mg ORAL tablet Take 1 tablet by mouth every 6 hours as needed for Pain. (Patient not taking: Reported on 10/26/2023) ALBUTEROL 90 MCG/ACTUATION AEROSOL INHALER 2 puffs every four (4) hours as needed (Patient not taking: Reported on 10/26/2023) FAMILY HISTORY Adopted: Yes Problem Relation Age of Onset other (Other [Other]) Mother patient adopted other (Other [Other]) Father Social History Tobacco Use Smoking status: Never Substance Use Topics Alcohol use: Yes Comment: 1-2 glasses weekly Drug use: No ASSESSMENT/PLAN: 1. Pain - ICD9: 780.96, ICD10: R52 - XR WRIST INJURY 4V PA/LAT/OBL/SCAPH RIGHT - XR HAND GENERAL 3V PA/LAT/OBL RIGHT * * * * Physician Interpretation * * * * EXAM TITLE: XR WRIST 4V PA/LAT/OBL/SCAPH RT EXAM DATE/TIME: 10/26/2023 8:53 AM COMPARISON: None. CLINICAL INDICATION/HISTORY: Injury TECHNIQUE: PA, lateral, oblique and scaphoid views of right wrist are presented. FINDINGS: No acute fractures or subluxations are noted. The joint spaces are well preserved. The mineralization of the bones is normal. There is no significant soft tissue swelling. IMPRESSION IMPRESSION: No acute radiographic abnormalities seen in the right wrist. Electric Stove Installer: AMAURY Transcribe Date/Time: Oct 26 2023 8:55A Dictated by : SHERRY ROMERO MD * * * * Physician Interpretation * * * * EXAMINATION: XR HAND 3V PA/LAT/OBL RT CLINICAL HISTORY: Right hand pain Technique: XR HAND 3V PA/LAT/OBL RT -- RIGHT with 3 views on 3 images Comparison: None RESULT: No acute fracture or dislocation. Joint spaces are maintained. No periarticular erosions. IMPRESSION IMPRESSION: No acute osseous abnormality Electric Stove Installer: [facility] Transcribe Date/Time: Oct 26 2023 9:20A Dictated by : VIRGIL ALLISON MD She was instructed to rest ice alternate Tylenol Motrin given a week or so if signs and symptoms seem to be getting worse not better follow-up with primary care patient was okay with this care plan. Zaira Mack APRN.CNP documented in this encounter [facility] 09-12-2010 Miscellaneous Notes Patient called with First Screen results. negative Tri21 age related risk 1;450 Screening risk 1;1,400 Tri18 age related risk 1,1,500 Screening risk 1,2,300 Based on these results it is recommended for the patient to follow-up with Sequential second trimester screen after 15 weeks and a anatomy ultrasound after 18 weeks. [facility] Diagnosis Pain- Primary Generalized pain Pain Generalized pain [facility] Pain Generalized pain [facility] Diagnosis Left shoulder pain, unspecified chronicity- Primary [facility] Diagnosis Chronic left shoulder pain- Primary Pain in joint, shoulder region Complete tear of left rotator cuff, unspecified whether traumatic Shoulder impingement Other affections of shoulder region, not elsewhere classified Bursitis of left shoulder Disorders of bursae and tendons in shoulder region, unspecified Tendinitis of left shoulder Disorders of bursae and tendons in shoulder region, unspecified [facility] Left shoulder pain, unspecified chronicity documented in this encounter [facility] for referral (narrative)* Diagnostic Procedure Only (Urgent) - Closed Specialty Diagnoses / Procedures Referred By Contac t Referred To Contact XR IMAGING Diagnoses Pain Procedures XR HAND GENERAL 3V PA/LAT/OBL RIGHT RADEX HAND MINIMUM 3 VIEWS Zaira Mack APRN.LAB[employer]ER [employer] [address] [place] [address] [place] [address] Referral ID Status Reason Start Date Expiration Date V isits Requested Visits Authorized [id number] Closed Auto-Generate d Referral 10/26/2023 11/24/2024 1 1 * Diagnostic Procedure Only (Urgent) - Closed Specialty Diagnoses / Procedures Referred By Contac t Referred To Contact XR IMAGING Diagnoses Pain Procedures XR WRIST INJURY 4V PA/LAT/OBL/SCAPH RIGHT RADEX WRIST COMPLETE MINIMUM 3 VIEWS Zaira Mack APRN.[employer] [address] [place] [address] [place] [address] Referral ID Status Reason Start Date Expiration Date V isits Requested Visits Authorized [id number] Closed Auto-Generate d Referral 10/26/2023 11/24/2024 1 1 [facility] for referral (narrative)* Diagnostic Procedure Only (Urgent) - Closed Specialty Diagnoses / Procedures Referred By Contac t Referred To Contact XR IMAGING Diagnoses Pain Procedures XR HAND GENERAL 3V PA/LAT/OBL RIGHT RADEX HAND MINIMUM 3 VIEWS Zaira Mack APRN.[employer] [address] [place] [address] [place] [address] Referral ID Status Reason Start Date Expiration Date V isits Requested Visits Authorized [id number] Closed Auto-Generate d Referral 10/26/2023 11/24/2024 1 1 * Diagnostic Procedure Only (Urgent) - Closed Specialty Diagnoses / Procedures Referred By Contac t Referred To Contact XR IMAGING Diagnoses Pain Procedures XR WRIST INJURY 4V PA/LAT/OBL/SCAPH RIGHT RADEX WRIST COMPLETE MINIMUM 3 VIEWS Zaira Mack APRN.[employer] [address] [place] [address] [place] [address] Referral ID Status Reason Start Date Expiration Date V isits Requested Visits Authorized [id number] Closed Auto-Generate d Referral 10/26/2023 11/24/2024 1 1 [facility] for visit Narrative* Diagnostic Procedure Only (Urgent) - Closed Specialty Diagnoses / Procedures Referred By Contac t Referred To Contact XR IMAGING Diagnoses Pain Procedures XR HAND GENERAL 3V PA/LAT/OBL RIGHT RADEX HAND MINIMUM 3 VIEWS Zaira Mack APRN.[employer] [address] [place] [address] [place] [address] Referral ID Status Reason Start Date Expiration Date V isits Requested Visits Authorized [id number] Closed Auto-Generate d Referral 10/26/2023 11/24/2024 1 1 [facility] for visit Narrative* Diagnostic Procedure Only (Routine) - Closed Specialty Diagnoses / Procedures Referred By Contac t Referred To Contact XR IMAGING Diagnoses Left shoulder pain, unspecified chronicity Procedures XR SHOULDER GENERAL 3V OR MORE AP/TRUE AP/OTHER LEFT RADEX SHOULDER COMPLETE MINIMUM 2 VIEWS Nila Abebe PA-C [address] [place] [address] Phone: tel: fax: [place] [address] Referral ID Status Reason Start Date Expiration Date V isits Requested Visits Authorized [id number] Closed Auto-Generate d Referral 02/17/2025 03/19/2026 1 1 [facility] Advance Directives No Advanced Directives Records FoundDocuments on File Type Date Recorded Patient Academic Advising Director Expl anation Advance Directive(s) 12/29/2016 9:14 PM Summary Purpose Family History No Family History Records FoundNo Family History Records FoundNo Family History Records FoundNo Family History Records Found Additional Source Comments Source Comments (unrecognize d section and content) In the event this informatio n is protected by the Federal Confidentiality of Alcohol and Drug Abuse Patient Records regulations: The Federal rules restrict any use of the information to criminally investigate or prosecute any alcohol or drug abuse patient.[facility] the event this information is protected by the Federal Confidentiality of Alcohol and Drug Abuse Patient Records regulations: The Federal rules restrict any use of the information to criminally investigate or prosecute any alcohol or drug abuse patient.[facility] the event this information is protected by the Federal Confidentiality of Alcohol and Drug Abuse Patient Records regulations: The Federal rules restrict any use of the information to criminally investigate or prosecute any alcohol or drug abuse patient.[facility] the event this information is protected by the Federal Confidentiality of Alcohol and Drug Abuse Patient Records regulations: The Federal rules restrict any use of the information to criminally investigate or prosecute any alcohol or drug abuse patient.[facility] the event this information is protected by the Federal Confidentiality of Alcohol and Drug Abuse Patient Records regulations: The Federal rules restrict any use of the information to criminally investigate or prosecute any alcohol or drug abuse patient.[facility] the event this information is protected by the Federal Confidentiality of Alcohol and Drug Abuse Patient Records regulations: The Federal rules restrict any use of the information to criminally investigate or prosecute any alcohol or drug abuse patient.[facility] Reason for Visit (unrecogniz ed section and content) Reason Onset Date Comments Results 09/12/2010 Reason Comments Hand Injury R hand injury x last night, softball to hand Reason Comments New Pain INFORMATION SOURCE (unrecogn ized section and content) DATE CREATED AUTHOR 10/22/2020 [facility] DATE CREATED AUTHOR AUTHOR'S ORGANIZ ATION 04/01/2025 [facility] DATE CREATED AUTHOR AUTHOR'S ORGANIZ ATION 04/25/2025 [facility] DATE CREATED AUTHOR AUTHOR'S ORGANIZ ATION 04/25/2025 [facility] Care Teams (unrecognized sec tion and content) Cardiopulmonary Physical Therapist Relationship Specialty Start Date End Date Calvin Sneed PCP - General 10/26/23 Cardiopulmonary Physical Therapist Relationship Specialty Start Date End Date OlemitchellEvie callawayongmaria eugenia PCP - General 10/26/23 Cardiopulmonary Physical Therapist Relationship Specialty Start Date End Date OlemitchellEvie callawayongmaria eugenia PCP - General 10/26/23 Cardiopulmonary Physical Therapist Relationship Specialty Start Date End Date OlemitchellHansa callawayewongbe PCP - General 10/26/23 Cardiopulmonary Physical Therapist Relationship Specialty Start Date End Date Olemitchellcesia Tammymaria eugenia PCP - General 10/26/23 FOR RECORDS PERTAINING TO PATIENTS WHO ARE OR HAVE BEEN ENROLLED IN A CHEMICAL DEPENDENCY/SUBSTANCEABUSE PROGRAM, SOME INFORMATION MAY BE OMITTED. This clinical summary was aggregated from multiple sources. Caution should be exercised in using it in the provision of clinical care. This summary normalizes information from multiple sources, and as a consequence, information in this document may materially change the coding, format and clinical context of patient data. In addition, data may be omitted in some cases. CLINICAL DECISIONS SHOULD BE BASED ON THE PRIMARY CLINICAL RECORDS. [facility] [employer] [facility]. provides no warranty or guarantee of the accuracy or completeness of information in this document.
[2025-06-23] MEDS: DiphenhydrAMINE 50 MG/ML Syringe 25 MG IV (05:49)
[2025-06-23 05:51] LABS: Hematocrit 44.2 % (37-47); Hemoglobin 15.3 g/dL (12.0-15.0); Immature Granulocytes Count 0.010 X10^3/uL (0.0-0.0); Mean Corp Hgb Conc 34.6 g/dL (32-36); Mean Corpuscular Volume 84.0 fL (81-99); Mean Platelet Vol. 9.7 fl (6.2-12.0); NRBC Flagged by Analyzer 0 % (0-5); Platelet Count 229 K/mm3 (150-450); RBC Distribution Width CV 11.7 % (11.6-14.6); RBC Distribution Width SD 35.4 fl (35.1-43.9); Red Blood Count 5.26 M/mm3 (4.2-5.4); White Blood Count 7.4 K/mm3 (4.4-11.0)
[2025-06-23 06:15] LABS: Anion Gap 10 (7-18); BUN 15 mg/dL (4-19); BUN/Creat Ratio 15.8 RATIO (10-20); Calcium,Total 10.0 mg/dL (7.6-11.0); Carbon Dioxide 26.2 mmol/L (20.0-29.0); Chloride 103 mmol/L (96-106); Estimated Creatinine Clearance 86.46 ml/min (50-250); Glucose 129 mg/dL (70-99); Magnesium 2.1 mg/dL (1.5-2.2); Potassium 4.8 mmol/L (3.5-5.1)
[2025-06-23 06:28] VITALS: BP 169/104
--- NOTE | 2025-06-23 06:58 | EDS_ITS ---
HPI History of Present Illness Chief Complaint: Hypertension Informant: patient Narrative Narrative: Patient is a 44-year-old female who reports a past medical history of asthma seasonal allergies and frequent headaches. She states that she has been getting headaches frequently but that she believes this is related to the fact she has a left shoulder injury and is going to require surgery to fix it. She states that she has been taking Excedrin Migraine to help with symptoms and it does seem to resolve the headache. She states that there has been no recent head trauma. She denies any previous diagnosis of migraine headache. She also states there is been no sick symptoms such as fevers chills cough congestion nausea or vomiting. She states that she awoke this morning and noticed she was having a headache and reports that it just felt different than her previous headaches so she decided to check her blood pressure and it was elevated at a value of approximately 200. She states she does not have a history of high blood pressure and therefore this concerned her and she presents for evaluation She states that even though she took Excedrin Migraine which has caffeine she has not done an excessive amount of the medication and she denies any excessive similar use or illicit drug use [facility] Medical History (Updated 06/23/25 @ 07:[address] Sanya Palacio, DO) Frequent headaches Gestational diabetes Back problem Asthma Allergies Endometriosis Home Medications ?Medication ?Instructions ?Recorded ?Last Taken ?Type albuterol sulfate 90 mcg/actuation 2 puff inhalation Q 6H PRN 10/10/19 Unknown Rx aerosol inhaler shortness of breath or wheez ing #8 grams loratadine 10 mg capsule (Claritin 10 mg PO DAILY 11/23 03/14 Unknown History Liqui-Gel) metoprolol tartrate 50 mg tablet 50 mg PO BID 30 days #60 tabs 06/23/25 Unknown Rx Allergy/AdvReac Type Severity Reaction Status Date / Time No Known Allergies Allergy Verified 06/23/25 05:24 Family History Mother Diabetes Myocardial infarction Father Myocardial infarction Grandfather Myocardial infarction Surgical History H/O laparoscopy Social History Smoking Status: Never smoker alcohol intake: current alcohol intake frequency: holidays/special occasions only details: social substance use type: does not use caffeine: Yes what type of physical activity do you participate in: bicycling and other details: Plays Softball frequency: 1-2 times per week seatbelt use: always do you feel safe at home: Yes 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 ROS ROS ED Constitutional Constitutional ED: Denies chills or fever(s) Eyes Eyes: Denies blurry vision or change in vision ENT ENT ED: Denies sore throat Cardiovascular Cardiovascular: Denies chest pain, palpitations or racing heartbeat Respiratory/Chest Respiratory/Chest: Denies cough or dyspnea Gastrointestinal Gastrointestinal: Denies abdominal pain, diarrhea, nausea or vomiting Genitourinary Genitourinary ED: Denies dysuria Musculoskeletal Musculoskeletal: Reports other Details: Positive left shoulder pain which has been present recently as she has need for surgery ; Denies neck pain Integumentary Denies rash Neurologic Neurologic: Reports headache(s); Denies paresthesias or weakness Hematologic/Lymphatic Hematologic/Lymphatic: Denies easy bleeding or easy bruising EXAM Physical Exam Const Vital Signs: 06/23/25 05:22 06/23/25 05:22 06/23/25 06:28 Temperature 97.6 F L Temperature Source Oral Pulse Rate 108 H Respiratory Rate 18 Respiratory Effort Normal Non-Labored Respiratory Pattern Normal Blood Pressure 198/115 H 169/104 H Blood Pressure Mean 142 125 Pulse Ox 99 Oxygen Delivery Method Room Air Positive well nourished and well developed General Appearance ED: well developed; Negative for pallor HEENT HEENT Narrative: Normocephalic atraumatic No increased pain on palpation over top the maxillary frontal or ethmoid sinuses Eyes PERRL and EOMs intact bilaterally General Eye ED: Negative for scleral icterus Neck supple Neck Narrative: No nuchal rigidity or meningeal signs Resp normal respiratory effort and clear to auscultation bilaterally Cardio regular rhythm Rate: tachycardic and other Other Details: Slightly tachycardic rate with regular rhythm Radial and carotid pulses are equal and symmetric No carotid bruit noted No murmurs rubs or gallops GI normal to inspection, nondistended, normoactive bowel sounds, non-tender, non- distended and no masses GI Narrative: No voluntary guarding or rigidity or pulsatile mass Auscultation: normoactive bowel sounds Palpation: soft Extremity normal to inspection Extremity Narrative: No asymmetric edema no pitting edema negative Homans' sign bilaterally Neuro oriented x3, CN's II-XII intact bilaterally and no sensory deficits noted Neuro Narrative: GCS of 15 Cranial nerves II through XII are grossly intact without focal neurologic deficit No pronator drift no dysmetria no truncal ataxia NIH stroke scale score of 0 Sensorium / Orientation: alert Motor Exam: strength 5/5 throughout Psych mental status grossly normal Skin no rashes or lesions noted General Skin Exam: Negative for jaundice or pallor MDM MDM MDM Narrative Medical decision making narrative: Patient arrived to the ER hypertensive and mildly tachycardic. She reported she been having frequent headaches but does not have a history of migraine. She denies any recent trauma or sick symptoms. In order to assess for cause of the headaches such as a subarachnoid or subdural hemorrhage or brain mass a head CT was ordered. In order to assess for endorgan damage based on the hypertension an EKG was obtained as well as basic blood work. EKG showed normal sinus rhythm without ischemic changes or dysrhythmia finding. Blood work revealed no leukocytosis or left shift going against an infectious process. She has no signs of acute kidney injury or electrolyte abnormality. TSH is also within normal range going against a thyroid malfunction. Patient was given Benadryl and Reglan for her headache and reports almost complete resolution upon reevaluation and her neurologic exam remains normal. She was given clonidine and labetalol for her hypertension. With improvement of the headache and providing medication for the hypertension the patient's blood pressure did reduce approximately 15% which is the minimum goal reduction in the ER. At this time as she has no signs of endorgan damage or underlying anatomical change such as brain mass or subarachnoid or subdural hemorrhage I do not feel there is need for admission. Patient can be placed on blood pressure medication to help control symptoms and follow-up with your family doctor for further evaluation History & Record Review Discussion w/independent historian: Patient Lab Data Attestation: I reviewed the patient's lab results. Labs: Laboratory Results - last 24 hr 06/23/25 05:29 WBC 7.4 RBC 5.26 Hgb 15.3 H Hct 44.2 MCV 84.0 MCH 29.1 MCHC 34.6 RDW Std Deviation 35.4 RDW Coeff of Daryl 11.7 Plt Count 229 MPV 9.7 Immature Gran % (Auto) 0.100 Neut % (Auto) 49.7 Lymph % (Auto) 36.6 Grant % (Auto) 8.8 Eos % (Auto) 4.3 Baso % (Auto) 0.5 Absolute Neuts (auto) 3.7 Absolute Lymphs (auto) 2.71 Nucleated RBC % 0 Sodium 140 Potassium 4.8 Chloride 103 Carbon Dioxide 26.2 Anion Gap 10 BUN 15 Creatinine 0.97 Estim Creat Clear Calc 86.46 Est GFR (MDRD) Non-Af 73 BUN/Creatinine Ratio 15.8 Glucose 129 H Calcium 10.0 Magnesium 2.1 TSH 1.810 Radiography Diagnostic Testing: Clinical Impression(s) from Imaging Studies Brain CT 06/23/25 05:43 IMPRESSION: No intracerebral or extra-axial hemorrhage. No acute territorial cerebrovascular abnormalities. If clinical symptoms persist, further evaluation with MRI may be considered as clinically warranted. Reading Location: [place] [id number] Discharge Plan Triage Chief Complaint: Hypertension ED Provider: Sanya Palacio Dx/Rx/DC Orders Clinical Impression: Cephalgia, Hypertension, Asthma Instructions: Understanding Headache Pain, ED High Blood Pressure New Begin Tx Prescriptions: New metoprolol tartrate 50 mg tablet 50 mg PO BID 30 Days Qty: 60 0RF No Action albuterol sulfate 90 mcg/actuation HFA aerosol inhaler 2 puff INHALATION Q6H PRN (Reason: shortness of breath or wheezing) Qty: 8 1RF loratadine [Claritin Liqui-Gel] 10 mg capsule 10 mg PO DAILY Stand Alone Forms: ED Work / School Excuse Primary Care Provider: Calvin Sneed Referrals: Calvin Sneed MD [Primary Care Provider, Internal Medicine] Print Language: Citizen Of [place] Disposition Disposition: Home, Self Care
[2025-06-23 07:48] VITALS: BP 163/102; PULSE 89; RESP 16; TEMP 37.1; O2SAT 99
== END 2025-06-23 07:50 | disposition home or self-care (01) ==
PROVIDERS: Emergency Provider Emergency Medicine; PCP Internal Medicine; Visit Provider Emergency Medicine
DX: I10 Essential (primary) hypertension (principal); R51.9 Headache, unspecified; J45.909 Unspecified asthma, uncomplicated; Z79.82 Long term (current) use of aspirin
CPT/HCPCS: 70450; 80048; 83735; 84443; 85025; 93005; 96374; 96375; 96376; 99283; A4216